=== PATIENT | male | born 1960 | race Caucasian/White ===

== ENCOUNTER 2017-06-28 08:02 | Day surgery (SDC) | payer BC ==
[2017-06-27 10:14] LABS: Absolute Lymphocytes (CBC) 4.3 K/uL (0.7-4.9); Absolute Monocytes 0.9 K/uL (0.1-1.3); Absolute Neutrophil 8.5 K/uL (1.8-8.0); Basophils % 0.2 % (0-1.3); Eosinophils % 1.7 % (0-4.4); Hematocrit 48.5 % (39.6-49.0); Lymphocytes % 30.9 % (15.3-44.8); MCH 32.2 pg (27.0-35.0); MCV 95.3 fL (80-100); MPV 8.4 fL (7.6-11.3); Monocytes % 6.2 % (3.3-12.3); RBC Red Blood Cell Count 5.09 M/uL (4.33-5.43)
--- NOTE | 2017-06-27 10:39 | RAD REPORT ---
EXAM DESCRIPTION: RAD - Chest Pa And Lat (2 Views) - 06/27/2017 10:32 am CLINICAL HISTORY: Smoker, diabetes. COMPARISON: 06/12/2017, and 12/24/2016, 05/11/2008 FINDINGS: Mild diffuse COPD is present. Vague area of nodularity in the right mid lung appears stabl e. No acute infiltrate seen. The heart is normal in size. No displaced fractures. IMPRESSION: COPD.
[2017-06-27 10:46] LABS: Bicarbonate 24 mEq/L (21-31); Glucose Level 346 mg/dL (65-120); Potassium 4.4 mEq/L (3.6-5.0); Sodium Level 137 mEq/L (135-145)
[2017-06-27 10:47] LABS: BUN Blood Urea Nitrogen 18 mg/dL (6-20)
--- NOTE | 2017-06-27 11:00 | EKG ---
Test Date: 2017-06-27 Test Time: 10:02:07 Supervisor Curing Room: TRAY MEASUREMENT RESULTS: Intervals: Rate: 72 [place]: 148 QRSD: 84 QT: 374 QTc: 409 [place]: P: 48 [place]: 148 QRS: 22 T: 79 INTERPRETIVE STATEMENTS: Normal sinus rhythm Normal ECG Compared to ECG 12/24/2016 08:02:03 No significant changes Electronically Signed On 06-27-17 10:59:30 CDT by Sharath Abdi
[2017-06-28] MEDS ORDERED: CEFAZOLIN/SWI 1gm 1 GM/10 ML SYR ONE (08:32)
[2017-06-28] MEDS ORDERED: NA CHLORIDE 0.9% 1,000 ML ONE (08:32)
[2017-06-28] MEDS ORDERED: INSULIN -REGULAR HUMAN 50 UNIT/0.5 ML ML ONE (08:57)
[2017-06-28] MEDS ORDERED: PROPOFOL 200 MG/20 ML VIAL IV ONE (09:30)
[2017-06-28] MEDS ORDERED: MIDAZOLAM HCL 2 MG/2 ML INJ ONE (09:31)
[2017-06-28] MEDS ORDERED: LIDOCAINE 2% MPF 5 ML VIAL ONE (09:32)
[2017-06-28] MEDS ORDERED: FENTANYL CITR 100 MCG/2 ML ONE (09:33)
[2017-06-28] MEDS ORDERED: COLLAGENASE 30 GM OINTMENT TOP ONE (09:35)
[2017-06-28] MEDS ORDERED: EPHEDRINE SULF 50 MG/5 ML SYR ONE (10:11)
[2017-06-28 12:18] VITALS: BP 132/85; TEMP 97.5; O2SAT 97
--- NOTE | 2017-06-28 22:01 | OP ---
Date of Procedure: 06/28/2017 Surgeon: Nasim Arreola MD Operations Team Leader: Stephanie Kuo, certified MEDIA MARKETING SPECIALIST. Preoperative Diagnosis: Nonhealing wound, left leg; rule out skin cancer. Postoperative Diagnoses: 1.Nonhealing wound, left leg; rule out skin cancer. 2.Basal cell carcinoma. Margins free. Procedure Performed: Wide excision, left leg basal cell carcinoma, 12 x 3 cm, with layered closure. Estimated Blood Loss: Minimal. Specimen: Left leg basal cell carcinoma. Findings: Findings were based upon frozen section. Anesthesia: General. Complications: None. Disposition: The patient tolerated the procedure in stable condition and was taken to Recovery in go od general condition. Procedure In Detail: The patient was brought to the OR and placed in supine position. General anest hesia was begun. The patient was prepped and draped in the usual sterile fashion. Marcaine 0.5% was infiltrated locally. A 15-blade was used to make a 12 x 3-cm incision to excise this 2.5-cm ulcerat ed, raised-edges mass. Specimen was sent to Pathology. Frozen section revealed basal cell carcinoma . Margins were free. Wound was irrigated. Bleeding was controlled with cautery. Flaps were create d. A 2-0 chromic was used to approximate the subcutaneous tissue, and 3-0 nylon was used to close th e skin. Sterile dressing was applied. The patient was awakened and taken to Recovery in good genera l condition. DISCHARGE NOTE The patient will be discharged home when stable. Disposition: Home. Condition: Stable. Discharge Instructions: Resume home medications and diet. Activity as tolerated. No heavy lifting. Remove outer dressing in 2 days. Shower. Keep wound clean and dry. [facility] up [facility] and 10 days. Tylenol No. 3 one tablet p.o. q.4 h. p.r.n. pain and Keflex 500 mg p.o. q.6 h. /MODL Voice ID: [id number] Report ID: [id number]
== END 2017-06-28 11:33 | disposition home or self-care (01) ==
LOC: OR 08:02
PROVIDERS: ATTEND Surgery
PROC: 0JBP0ZZ Excision of Left Lower Leg Subcutaneous Tissue and Fascia, Open Approach (ICD-10-PCS; principal; 2017-06-28 09:45)
DX: C44.719 Basal cell carcinoma of skin of left lower limb, including hip (principal); F10.10 Alcohol abuse, uncomplicated; I25.10 Atherosclerotic heart disease of native coronary artery without angina pectoris; E11.9 Type 2 diabetes mellitus without complications; E78.5 Hyperlipidemia, unspecified; I10 Essential (primary) hypertension; F17.200 Nicotine dependence, unspecified, uncomplicated
CPT/HCPCS: 36415; 71046; 80048; 82962; 85025; 88305; 88331; 88332; 93005; J0690; J2250; J3010; J3590; J7030

== ENCOUNTER 2021-06-12 03:37 | Observation (INO) | payer BC, OTHER, SELFPAY ==
--- OUTSIDE RECORDS SUMMARY | 2021-06-12 03:42 | XMS REPORT | Continuity of Care Document ---
:1960 Author Organization [facility] t Address [address] [place] [address] Care Team Providers Name Role Phone Pcp, Does Not Have A Primary Care Physician Mir Attending Clinician Unavailable ANGELA Attending Clinician Unavailable Gilma Gilbert Attending Clinician Niranjan MORILLO Attending Clinician Angela MORILLO Attending Clinician Doctor Unassigned, Name Attending Clinician Unavailable Veena Springer DO Attending Clinician Veena SPRINGER Attending Clinician Unavailable ANGELA Admitting Clinician Unavailable Angela MORILLO Admitting Clinician Veena SPRINGER Admitting Clinician Unavailable Payers Payer Name Policy Type Policy Number Effective Date Expiration Date S ource Problems Condition Condition Condition Status Onset Resolution Last Treating Co mments Source Name Details Category Date Date Treatment Clinician Date Ascites Ascites Disease Active Univers 4-14 ity of 00:00: [address] Branch 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 4-14 [place] No known No known Disease Unive rs active active ity of problems problems [facility] Allergies, Adverse Reactions, Alerts Allergy Allergy Status Severity Reaction(s) Onset Inactive Treating Comm ents Source Name Type Date Date Clinician NO KNOWN Drug Active Univers ALLERGIE Class ity of S [facility] Social History Social Habit Start Date Stop Date Quantity Comments Source Exposure to Not sure University of SARS-CoV-2 [place] [facility] (event) Branch History SDOH University o f Alcohol Frequency [facility] edical Branch History SDOH University o f Alcohol Std [place] [facility] Drinks Branch History SDOH University o f Alcohol Binge [facility] al Uriah Tobacco use and 2021-06-08 2021-06-08 Never used Universit y of exposure 00:00:00 00:00:00 [facility] Alcohol intake 2021-06-08 2021-06-08 Ex-drinker University of 00:00:00 00:00:00 (finding) [facility] Alcohol Comment 2021-06-08 2021-06-08 last drink Universit y of 00:00:00 00:00:February [facility] l Uriah Sex Assigned At [birth year] Universit y of 00:00:00 00:00:00 [facility] Smoking Status Start Date Stop Date Source Unknown if ever smoked [facility] y [facility] Former smoker 2021-06-08 00:00:00 2021-06-08 00:00:00 [facility] Medications Ordered Filled Start Stop Current Ordering Indication Dosage Frequency Signature Comments Components Source Medication Medication Date Date Medication? Clinician (SIG) Name Name spironolact Yes 50mg 50 mg, Univ ers one 4-17 Oral, BID, ity of (ALDACTONE) 01:00: First dose [place] tablet 50 00 (after Medical mg last Branch modificati on) on 06/10/21 at 1999, Until Discontinu ed, Routine furosemide Yes 20mg 20 mg, Unive rs (LASIX) 4-17 Oral, BID, ity of tablet 20 01:00: [place] 00 on Sat Medical 06/10/21 at Branch 1999, Until Discontinu ed, Routine FUROSEMIDE Take by Un lauri ORAL 4-16 04-16 mouth. ity of 10:03: 00:00 [place] 59 :00 Medical Branch furosemide 2021- Yes [id number] 20mg Take 1 Univers 20 mg 4-16 05-17 tablet by ity of tablet 00:00: 04:59 mouth 2 [place] 00 :00 (two) Medical times Branch daily for 30 days. apixaban 2021- Yes [id number] 5mg Take 1 Univer s (ELIQUIS) 5 -16 05-17 tablet by it y of mg tablet 00:00: 04:59 [place] 2 [place] :[place] (two) Medical times Branch daily for 30 days. Indication s: blockage or narrowing of the portal vein by a blood clot magnesium 2021- Yes [id number] 400mg Take 400 Univers oxide 420 4-16 05-17 mg by ity of mg Tab 00:00: 04:59 mouth [place] 00 :00 daily for Medical 30 days. Branch glipiZIDE 2021- Yes [id number] 2.5mg Take 1 Univers XL 2.5 mg 4-16 05-17 tablet by ity of 24 hr 00:00: 04:59 mouth [place] tablet 00 :00 daily with Medical breakfast Branch for 30 days. spironolact 2021- Yes [id number] 50mg Take 1 Univers one 50 mg -16 05-17 tablet by ity of tablet 00:00: 04:59 mouth 2 [place] 00 :00 (two) Medical times Branch daily for 30 days. albumin 2021- No 25g 25 g, IV Unive rs (ALBUMINAR 06-09 Infusion, ity of 25%) 25 % 22:45: 23:02 ONCE, 1 [place] injection [place] :00 dose, On Medica l 25 g Fri Branch 06/09/21 at 1745, 100 mL
[place] cation: HEMORRHAGI C SHOCK
C omments: 1. First-line therapy: Crystalloi ds. 2. Failed response from use of crystalloi d therapy. KCL 2021- No 40meq 40 mEq, Univers (KLOR-CON -15 Oral, ity of M20) tablet 15:00: 16:52 ONCE, 1 [place] 40 mEq 00 :00 dose, On Medical Fri Branch 06/09/21 at 1000, Routine magnesium 2021-0 Yes 400mg 400 mg, Univ ers oxide 4-15 Oral, BID, ity of (MAG-OX 13:00: [place] 400[place] tablet 00 on Sat Medica l 400 mg 06/09/21 at Branch 0800, Until Discontinu ed, Routine Sliding 2021-0 Yes Subcutaneo Univ ers Scale 4-15 us, AC, ity of Insulin-Reg 12:30: First dose [place] ular + Fsbg 00 on Sat Medica l Testing 06/09/21 at Branch 0730, Until Discontinu ed, Routine cefTRIAXone 2021-0 Yes 1000mg 1,000 mg, Univers (ROCEPHIN) 4-15 IV ity of 1,000 mg in 05:00: Piggyback, [place] NaCl 0.9% 00 Q12H ABX, Medic al (NS) 50 mL First dose [place] [facility] MINI-BAG on Sat06/09/21 at 0000, Until Discontinu ed, Administer over 30 Minutes, 50 mL
Reas on for Anti-Infec tive: Empiric Therapy for Suspected Infection< br>Empiric Therapy Site: Urine
D uration of therapy: 7 days lactulose 0 Yes 15mL 15 mL, Univer s (CEPHULAC) 4-15 Oral, BID, ity of solution 15 04:00: First dose [place] mL 00 on [facility] 06/08/21 at Branch 2300, Until Discontinu ed, Routine sennosides 2021-0 Yes 8.6mg 8.6 mg, Uni vers (SENOKOT) 4-15 Oral, BID, ity of tablet 8.6 04:00: First dose [place] mg 00 on [facility] 06/08/21 at Branch 2300, Until Discontinu ed, Routine docusate 2021-0 Yes 100mg 100 mg, Unive rs (COLACE) 4-15 Oral, BID, ity o f capsule 100 04:00: First dose [place] mg 00 on [facility] 06/08/21 at Branch 2300, Until Discontinu ed, Routine enoxaparin 0 Yes 1mg/kg 70 mg Univ ers (LOVENOX) 4-15 (rounded ity of injection 04:00: from 74.4 [place] 70 mg 00 mg = 1 Medical mg/kg Branch ?74.4 kg), Subcutaneo us, Q12H, First dose (after last modificati on) on [facility] 06/08/21 at 2300, Until Discontinu ed, Routine spironolact No 25mg 25 mg, Uni vers one 06-09-16 Oral, BID, ity of (ALDACTONE) 04:00: 14:12 First dose [place] tablet 25 00 :38 on [place] [facility] mg 06/08/21 at Branch 2300, Until Discontinu ed, Routine furosemide No 20mg 20 mg, IV U nivers (LASIX) 06-09 Push, Q8H, ity o f injection 04:00: 14:12 First dose [place] 20 mg 00 :06 (after Medical last Branch reorder) on [facility] 06/08/21 at 2300, Until Discontinu ed, Routine glucagon Yes 1mg 1 mg, Univers (GLUCAGEN 15 Intramuscu ity of DIAGNOSTIC 03:51: lar, PRN, [place] KIT) 30 Starting Medical injection 1 on [place] Branch mg 06/08/21 at 2251, Until Discontinu ed, MURPHY, Blood Glucose < or = 70 mg/dL and patient is unable to swallow or has mental changes. dextrose 50 Yes 25mL 25 mL, Univ ers % in water 415 Slow IV ity of (D50W) 03:51: Push, PRN, [place] injection 30 Starting Medica l 25 mL on [facility] Branch 06/08/21 at 2251, Until Discontinu ed, MURPHY, Blood Glucose < or = 70 mg/dL and patient is unable to swallow or has mental status changes. glipiZIDE 2021- No 2.5mg Take 2.5 Un lauri XL 2.5 mg 06-08- mg by ity of 24 hr 22:56: 00:00 mouth [place] tablet 51 :00 daily with Medical breakfast. Uri[place] FLUoxetine 2021- No 40mg Take 40 mg Univers 20 mg 06-08-14 by mouth ity of capsule 22:56: 00:00 daily. [place] 51 :00 [facility] Branch metformin 2021- No 2000mg Take 2,000 Univers ER 500 mg 06-08 mg by ity of 24 hr 22:56: 00:00 mouth [place] tablet 51 :00 daily with Medical breakfast. Branch ondansetron 2021- No 4mg 4 mg, Slow Univers (ZOFRAN 06-08 IV Push, ity of (PF)) 22:45: 21:46 ONCE, 1 [place] injection 4 00 :00 dose, On Medi jaimee mg [facility] 06/08/21 at 1745, MURPHY morpHINE 2021- No 4mg 4 mg, Slow Un lauri injection 4 06-08 IV Push, ity of mg 22:45: 21:46 ONCE, 1 [place] 00 :00 dose, On [facility] 06/08/21 at 1745, STAT traMADoL 2021- Yes 50mg 50 mg, Univer s (ULTRAM) 06-08 Oral, ity of tablet 50 22:36: 22:35 Q4HPRN, [place] mg 21 :21 Starting Medical on [facility] Branch 06/08/21 at 1736, Until 06/10/21 at 1735, Routine, Pain (scale 4-6) acetaminoph Yes 650mg 650 mg, Un lauri en 06-08 Oral, ity of (TYLENOL) 22:36: Q6HPRN, [place] tablet 650 14 Starting Medic al mg on [facility] 06/08/21 at 1736, Until Discontinu ed, Routine, Pain (scale 1-3) iopamidol 2021- No [id number] 100mL 100 mL, Univers (ISOVUE 06-08 Intravenou ity o f 370-500 mL) 21:45: 20:25 s, ONCE, 1 [place] injection 00 :00 dose, On Medica l 100 mL [facility] 06/08/21 at 1645, Routine KCL 2021- No 40meq 40 mEq, Univers (KLOR-CON 06-08 Oral, ity of M20) tablet 21:15: 20:19 ONCE, 1 [place] 40 mEq 00 :00 dose, On [facility] 06/08/21 at 1615, Routine furosemide No 60mg 60 mg, IV U nivers (LASIX) 06-08 Push, ity of injection 21:15: 20:20 ONCE, 1 [place] 60 mg 00 :00 dose, On Medical [place] Branch 06/08/21 at 1615, MURPHY magnesium No 2g 2 g, IV Univ ers sulfate in 06-08 Piggyback, it y of water 2 21:15: 21:32 Administer [place] gram/50 mL 00 :00 over 60 Medica l (4 %) Minutes, Branch infusion 2 ONCE, 1 g dose, On [place] 06/08/21 at 1615, Routine magnesium No 2g 2 g, IV Univ ers sulfate in 04-22 Piggyback, it y of water 2 15:45: 16:11 ONCE, 1 [place] gram/50 mL 00 :00 dose, On Medic al (4 %) Sat Branch infusion 2 04/22/21 at g 0945, Routine iopamidol No [id number] 110mL 110 mL, Univers (ISOVUE 04-22 Intravenou ity o f 370-500 mL) 14:05: 14:06 s, ONCE, 1 [place] injection 00 :00 dose, On Medica l 110 mL Sat Branch 04/22/21 at 0830, Routine No known No Univers medications 04-22 ity of 07:25: [address] No known No Univers medications 04-22 ity of 07:25: [address] Vital Signs Vital Name Observation Time Observation Value Comments Source Systolic blood 2021-06-10 12:16:00 101 mm[Hg] Univer sity of pressure [facility] Diastolic blood 2021-06-10 12:16:00 63 mm[Hg] Unive rsity of pressure [facility] Heart rate 2021-06-10 12:16:00 69 /min [facility] Body temperature 2021-06-10 12:16:00 36.44 Miya [facility] ersity [facility] Respiratory rate 2021-06-10 12:16:00 23 /min [facility] Oxygen saturation in 2021-06-10 12:16:00 91 /min [place] of Arterial blood by [facility] Pulse oximetry Branch Body weight 2021-06-09 19:00:00 74.98 kg Universi [facility] BMI 2021-06-09 19:00:00 25.13 kg/m2 [facility] Body height 2021-06-08 22:33:00 172.7 cm Universi [facility] Systolic blood 2021-04-22 16:00:00 138 mm[Hg] [facility] Diastolic blood 2021-04-22 16:00:00 85 mm[Hg] [facility] Heart rate 2021-04-22 16:00:00 86 /min [facility] Respiratory rate 2021-04-22 16:00:00 18 /min [facility] Oxygen saturation in 2021-04-22 16:00:00 96 /min University of Arterial blood by [facility] Pulse oximetry Branch Body temperature 2021-04-22 13:40:50 36.78 Miya [facility] Body height 2021-04-22 13:29:00 170.2 cm [facility] Body weight 2021-04-22 13:29:00 67.132 kg [facility] BMI 2021-04-22 13:29:00 23.18 kg/m2 [facility] Procedures Procedure Date / Time Performing Clinician Source Performed POCT GLUCOSE (AUTOMATED) 2021-06-10 12:51:00 Carloz Miller [facility] MAGNESIUM 2021-06-10 10:09:00 Carloz Miller [place] o f [facility] HEPATIC FUNCTION PANEL 2021-06-10 10:09:00 Carloz Miller [facility] ([id number]) (ALB,T.PRO,BILI [facility] Branch T,BU/BC,ALT,AST,ALK PHOS) BASIC METABOLIC PANEL 2021-06-10 10:09:00 Carloz Miller [facility] (NA, K, CL, CO2, Medical Branch GLUCOSE, BUN, CREATININE, CA) CBC WITH DIFF 2021-06-10 10:09:00 Carloz Miller [facility] N-TERMINAL PRO-BNP 2021-06-10 10:09:00 Carloz Miller [facility] POCT GLUCOSE (AUTOMATED) 2021-06-09 22:09:00 Carloz Miller [facility] ALBUMIN BODY FLUID 2021-06-09 21:40:00 Ken Ureña [facility] T.PROTEIN BODY FLUID 2021-06-09 21:40:00 Ken Ureña [facility] BODY FLUID DIRECT COUNT 2021-06-09 21:40:00 Ken Ureña [facility] BODY FLUID 2021-06-09 21:40:00 Ken Ureña [facility] CULTURE(AEROBIC/ANAEROBI [facility] C) US ARTERIAL IN OR VENOUS 2021-06-09 19:47:00 Kamilla Baker [facility] OUT ABDOMEN LIMITED Medical [facility] DOPPLER POCT GLUCOSE (AUTOMATED) 2021-06-09 17:36:00 Ken Ureña [facility] URINE DRUG (IMMUNOASSAY) 2021-06-09 11:01:00 Kamilla Baker [facility] SCREEN SODIUM, URINE RANDOM 2021-06-09 11:01:00 Kamilla Baker [facility] PROTEIN CREAT RATIO 2021-06-09 11:01:00 Kamilla Baker [facility] URINE RANDOM Medical Branch PHOSPHORUS 2021-06-09 09:32:00 Kamilla Baker [facility] LACTATE DEHYDROGENASE 2021-06-09 09:32:00 Kamilla Baker [facility] URIC ACID 2021-06-09 09:32:00 Olivia bernice [facility] MAGNESIUM 2021-06-09 09:32:00 Ken Ureña [facility] FERRITIN SERUM 2021-06-09 09:32:00 Olivia [facility] AMMONIA, PLASMA 2021-06-09 09:32:00 Olivia [facility] C-REACTIVE PROTEIN 2021-06-09 09:32:00 Olivia [facility] THYROID STIMULATING 2021-06-09 09:32:00 Olivia [facility] HORMONE [facility] COMP. METABOLIC PANEL 2021-06-09 09:32:00 Olivia bernice [facility] ([id number]) [facility] LIPID PANEL 2021-06-09 09:32:00 Olivia bernice [facility] ([id number])(TOTAL Medical Branch CHOLESTEROL, TRIGLYCERIDES, HDL) CBC WITH DIFF 2021-06-09 09:32:00 Ken Ureña [facility] HEPATITIS B SURFACE 2021-06-09 09:32:00 Olivia [facility] ANTIBODY [facility] HEPATITIS B SURFACE 2021-06-09 09:32:00 Olivia [facility] ANTIGEN [facility] HAV ANTIBODY (IGG AND 2021-06-09 09:32:00 Olivia [facility] IGM) [facility] N-TERMINAL PRO-BNP 2021-06-09 09:32:00 Olivia bernice [facility] VITAMIN D, 25-OH 2021-06-09 09:32:00 Olivia [facility] PROCALCITONIN 2021-06-09 09:32:00 Olivia [facility] PHOSPHORUS 2021-06-09 05:18:00 Ken Ureña [facility] SEDIMENTATION RATE 2021-06-09 05:18:00 Olivia bernice [facility] MRSA / MSSA SCREEN BY 2021-06-08 22:39:00 Ken Ureña [facility] / INR 2021-06-08 21:46:00 Ken Ureña [facility] ACTIVATED PARTIAL 2021-06-08 21:46:00 Ken Ureña [facility] THRMPLAS KOBI [facility] CT ABDOMEN PELVIS W 2021-06-08 20:38:48 Nisreen Perla [facility] CONTRAST [facility] URINALYSIS 2021-06-08 19:52:00 Nisreen Perla [facility] URINE CULTURE 2021-06-08 19:52:00 Kamilla Baker [facility] UREA NITROGEN, URINE 2021-06-08 19:52:00 Kamilla Baker [facility] RANDOM Medical Branch LIPASE 2021-06-08 18:36:00 Nisreen Perla [facility] MAGNESIUM 2021-06-08 18:36:00 Nisreen Perla [facility] TROPONIN I 2021-06-08 18:36:00 Nisreen Perla Gil[facility] COMP. METABOLIC PANEL 2021-06-08 18:36:00 Nisreen Perla [facility] ([id number] IRON PANEL 2021-06-08 18:36:00 Kamilla Baker [facility] CBC WITH DIFF 2021-06-08 18:36:00 Nisreen Perla [facility] GLYCOSYLATED HEMOGLOBIN 2021-06-08 18:36:00 [facility] HB ECG ROUTINE & RHYTHM 2021-06-08 18:29:24 Nisreen Perla [facility] CONSENT/REFUSAL FOR 2021-06-08 18:05:57 Doctor Unassigned, No Un [facility] DIAGNOSIS AND TREATMENT Name Medical [place] CT ABDOMEN PELVIS W 2021-04-22 14:15:00 Steffi Springer [facility] CONTRAST [facility] LIPASE 2021-04-22 13:41:00 Steffi Springer [facility] MAGNESIUM 2021-04-22 13:41:00 Steffi Springer [facility] AMMONIA, PLASMA 2021-04-22 13:41:00 Steffi Springer [facility] TROPONIN I 2021-04-22 13:41:00 tSeffi Springer [facility] COMP. METABOLIC PANEL 2021-04-22 13:41:00 Steffi Springer [facility] ([id number]) [facility] CBC WITH DIFF 2021-04-22 13:41:00 Steffi Springer Universit y of [facility] PROTHROMBIN TIME / INR 2021-04-22 13:41:00 Steffi Springer Un iversity of [facility] COVID-19 (ID NOW RAPID 2021-04-22 13:41:00 Steffi Springer Un iversity of [facility]) [facility] Encounters Start End Encounter Admission Attending Care Care Encounter Source Date/Time Date/Time Type Type Clinicians Facility Department ID 2021-04-10 Out[facility] [id number] 09:07:02 [facility] 2021-06-08 2021-06-10 Inpatient X ANGELA ALBRANDON NATALIA [id number] Univers 13:23:00 12:48:00 CARLOZ ity [facility] 2021-06-08 2021-06-10 [facility] PanNisreen freeman [facility] [id number] Univers 13:23:00 12:48:00 Encounter Ken Ureña [id number] ity of Carloz Miller [id number] [facility] [id number] [facility] 080 Branch 2021-06-08 2021-06-08 Orders Doctor ANDER [id number] Univers 00:00:00 00:00:00 Only Unassigned, DAVID [id number] ity of [place] [facility] [id number] [place] [id number] [facility] 009 Branch 2021-05-09 2021-05-09 [id number] 2021-04-22 2021-04-22 [facility] [id number] Univers 07:32:00 10:15:00 Steffi NELSON [id number] ity of ORIENT [id number] [facility] [id number] [facility] 084 Branch 2021-04-22 2021-04-[address]IAN [facility] ERT [id number] Univers 07:32:00 10:15:00 STEFFI li [facility] 2021-04-10 2021-04-10 [facility] [id number] [facility] 00:[facility] 00:00:00 Zakiya Ester Kera marnie [facility] ent Clinics Results Test Description Test Time Test Comments Results Result Comments Source POCT GLUCOSE (AUTOMATED) 2021-06-10 12:55:55 Test Item Value Reference Range Interpretation Comme nts POCT GLU (test code = 4681371647) 64 mg/dL 70-110 L Lab Interpretation (test code = 17372-4) Abnormal [facility] WITH [id number] 11:14:10 Test Item Value Reference Range Interpretation Comments WBC (test code = See_Comment [Automated message] 6490-2) The system [employer] generated this result transmitted ref erence range: 4.20 - 1 0.70 10*3/?L. The re ference range was not u sed to interpret this result as normal/abnor mal. RBC (test code = See_Comment [Automated message] 029-8) The system [employer] generated this result transmitted ref erence range: 4.26 - 5 .52 10*6/?L. The re ference range was not u sed to interpret this result as normal/abnor mal. HGB (test code = 14.0 g/dL 12.2-16.4 718-7) HCT (test code = 41.3 % 38.4-49.3 4544-3) MCV (test code = 94.7 fL 81.7-95.6 787-2) MCH (test code = 32.1 pg 26.1-32.7 785-6) MCHC (test code = 33.9 g/dL 31.2-35.0 786-4) RDW-SD (test code 46.6 fL 38.5-51.6 = 54927-5) RDW-CV (test code 13.3 % 12.1-15.4 = 788-0) PLT (test code = See_Comment [Automated message] 197-3) The system [employer] generated this result transmitted ref erence range: 150 - 32 8 10*3/?L. The re ference range was not u sed to interpret this result as normal/abnor mal. MPV (test code = 10.6 fL 9.8-13.0 18053-5) NRBC/100 WBC (test See_Comment [Automat ed message] code = 7785331913) The syste m which generated this result transmitted ref erence range: 0.0 - 10 .0 /100 WBCs. The refer ence range was not u sed to interpret this result as normal/abnor mal. NRBC x10^3 (test <0.01 See_Comment [Automated message] code = 3777002852) The syste m which generated this result transmitted ref erence range: 10*3/?L. The reference range was not used to interpr et this result as normal/abnormal . GRAN MAT (NEUT) % 49.8 % (test code = 770-8) IMM GRAN % (test 0.40 % code = 3009371323) LYMPH % (test code 37.5 % = 736-9) MONO % (test code 9.7 % = 5905-5) EOS % (test code = 1.4 % 713-8) BASO % (test code 1.2 % = 706-2) GRAN MAT 3.86 10*3/uL 1.99-6.95 x10^3(ANC) (test code = 2575961813) IMM GRAN x10^3 0.03 10*3/uL 0.00-0.06 (test code = 4249767263) LYMPH x10^3 (test 2.91 10*3/uL 1.09-3.23 code = 731-0) MONO x10^3 (test 0.75 10*3/uL 0.36-1.02 code = 742-7) EOS x10^3 (test 0.11 10*3/uL 0.06-0.53 code = 711-2) BASO x10^3 (test 0.09 10*3/uL 0.01-0.09 code = 704-7) [id number] 10:51:52 Test Item Value Reference Range Interpretation Comments NT-proBNP (test code 905 pg/mL See_Comment H [Autom ated = 8146041694) message] The system which generated this result transmitted reference range : <=125. The reference range was not used to interpret this result as normal/abnormal . RAIZA (test code = RAIZA) Biotin has been reported to cause a negative bias, interpret results relative to patient's use of biotin. Lab Interpretation Abnormal (test code = 13585-9) [facility] 10:44:47 Test Item Value Reference Range Interpretation Comments MAGNESIUM (test code = 8916344835) 1.7 mg/dL 1.7-2.4 Lab Interpretation (test code = Normal 41530-9) [facility] (NA, K, CL, CO2, GLUCOSE, BUN, CREATININE, CA)2021-06-10 10:44:32 Test Item Value Reference Range Interpretation Comments NA (test code = 136 mmol/L 135-145 6024575304) K (test code = 3.4 mmol/L 3.5-5.0 L 3588482629) CL (test code = 103 mmol/L 98-108 8780331192) CO2 TOTAL (test code = 27 mmol/L 23-31 9215499933) AGAP (test code = 2-16 6608673062) BUN (test code = 12 mg/dL 7-23 5548073916) GLUCOSE (test code = 75 mg/dL 70-110 8359362910) CREATININE (test code = 0.85 mg/dL 0.60-1.25 9474699580) CALCIUM (test code = 7.5 mg/dL 8.6-10.6 L 6474112796) eGFR (test code = mL/min/1.73m2 5664294879) RAIZA (test code = RAIZA) Association of Glomerular Filtration Rate (GFR) and Staging of Kidney Disease* + --+ --+ ------+| GFR (mL/min/1.73 m2) ?| With Kidney Damage ?| ?Without Kidney Damage+ --------+ --------+ +| ?>90 ?| ?Stage one ?| ? Normal ?+ ---+ ---+ -------+| ?60-89 ?| ?Stage two ?| ? Decreased GFR ? + --+ --+ ------+| ?30-59 ?| ?Stage three ?| ? Stage three ? + --+ --+ ------+| ?15-29 ?| ?Stage four ? | ? Stage four ?+ ---+ ---+ -------+| ?<15 (or dialysis) ? ?| ?Stage five ? | ? Stage five ?+ ---+ ---+ -------+ *Each stage assumes the associated GFR level has been in effect for at least three months. ?Stages 1 to 5, with or without kidney disease, indicate chronic kidney disease. Notes: Determination of stages one and two (with eGFR >59mL/min/1.73 m2) requires estimation of kidney damage for at least three months as defined by structural or functional abnormalities of the kidney, manifested by either:Pathological abnormalities or Markers of kidney damage (including abnormalities in the composition of the blood or urine or abnormalities in imaging tests). Lab Interpretation Abnormal (test code = 89116-0) [facility] (ALB,T.PRO,BILI T,BU/BC,ALT,AST,ALK PHOS)2021-06-10 10:44:32 Test Item Value Reference Range Interpretation Comments TOTAL BILI (test code = 8822614231) 1.0 mg/dL 0.1-1.1 BILI UNCON (test code = 3923530061) 0.5 mg/dL 0.1-1.1 BILI CONJ (test code = 0247685549) 0.0 mg/dL 0.0-0.3 T PROTEIN (test code = 8001829017) 5.5 g/dL 6.3-8.2 L ALBUMIN (test code = 3451834787) 2.5 g/dL 3.5-5.0 L ALK PHOS (test code = 6144519482) 119 U/L 34-122 ALTv (test code = 1742-6) 24 U/L 5-50 AST(SGOT) (test code = 1586871878) 86 U/L 13-40 H Lab Interpretation (test code = Abnormal 96650-9) [facility]2021-06-09 22:11:26 Test Item Value Reference Range Interpretation Comments POCT GLU (test code = 3624286322) 113 mg/dL 70-110 H Lab Interpretation (test code = Abnormal 09701-0) [facility] CenterIRON [id number] 21:47:29 Test Item Value Reference Range Interpretation Comments IRON (test code = 0422823141) 69 ug/dL 50-160 TIBC (test code = 6682503040) 240 ug/dL 250-410 L % FE SAT (test code = 8821352591) 29 % 20-50 Lab Interpretation (test code = Abnormal 42036-0) [facility]2021-06-09 17:39:15 Test Item Value Reference Range Interpretation Comments POCT GLU (test code = 8165770356) 117 mg/dL 70-110 H Lab Interpretation (test code = Abnormal 71538-1) [facility] CenterC-REACTIVE [id number] 17:07:30 Test Item Value Reference Range Interpretation Comments CRP (test code = 6895559370) 3.4 mg/dL <0.8 H Lab Interpretation (test code = Abnormal 54433-1) [facility] CenterPROCALCITONIN2022-04-15 16:52:33 Test Item Value Reference Range Interpretation Comments Procalcitonin (test 0.20 ng/mL <0.07 H code = 3426022895) RAIZA (test code = RAIZA) INTERPRETATION OF PROCALCITONIN RESULTS IN ADULTS >= 18 YEARS OF AGE Initiation and discontinuation of antibiotics on patients with suspected or confirmed Lower Respiratory Tract Infection in Adults >= 18 years of age. + +-------- --------+ + -----+|Procalcitonin |Interpretation ?|Antibiotic ? ? |Considerations ? |ng/mL ? | ?|recommendation | ? + +-------- --------+ + -----+| <0.1 ? | Bacterial ? ? ?| Strongly ? ? ?| ? | ?| infection very | discouraged ? | Overruling: ? | ?| unlikely ? ? ? | ? | ? Clinically unstable ? ? ? + +-------- --------+ + ? High risk for adverse ? ? | <0.25 ?| Bacterial ? ? ?| Discouraged ? | ? outcome ? | ?| infection ? ? ?| ? | ? SEE IMPORTANT NOTE ?| ?| unlikely ? ? ? | ? | ? + +-------- --------+ + -----+| >=0.25 ? ? ? | Bacterial ? ? ?| Encouraged ? ?| ? | ?| infection ? ? ?| ? | ? | ?| likely ? | ? | Consider treatment failure ?+ +------- ---------+ -+ if levels does not decrease | >0.5 ? | Bacterial ? ? ?| Strongly ? ? ?| appropriately ? | ?| infection very | encouraged ? ?| ? | ?| likely ? | ? | ? + +-------- --------+ + -----+ Discontinuation of antibiotics in high-acuity patients with suspected or confirmed sepsis in Adults >= 18 years of age. + +-------- --------+ + -----+|Procalcitonin |Interpretation ?|Antibiotic ? ? |Considerations ? |ng/mL ? | ?|recommendation | ? + +-------- --------+ + -----+| <0.25 ?| Bacterial ? ? ?| Strongly ? ? ?| ? | ?| infection very | discouraged ? | Overruling: ? | ?| unlikely ? ? ? | ? | ? Clinically unstable ? ? ? + +-------- --------+ + ? High risk for adverse ? ? | <0.5 or drop | Bacterial ? ? ?| Discouraged ? | ? outcome ? | >80% from ? ?| infection ? ? ?| ? | ? SEE IMPORTANT NOTE ?| highest PCT ?| unlikely ? ? ? | ? | ? | level ?| ?| ? | ? + +-------- --------+ + -----+| >=0.5 ?| Bacterial ? ? ?| Encouraged ? ?| ? | ?| infection ? ? ?| ? | ? | ?| likely ? | ? | Consider treatment failure ?+ +------- ---------+ -+ if levels does not decrease | >1.0 ? | Bacterial ? ? ?| Strongly ? ? ?| appropriately ? | ?| infection very | encouraged ? ?| ? | ?| likely ? | ? | ? + +-------- --------+ + -----+ Percentage of drop of Procalcitonin calculation for Discontinuation of antibiotics in high-acuity patients with suspected or confirmed sepsis in Adults >= 18 years of age. ? Procalcitonin highest{}-Procalcitonin current{}Delta Procalcitonin = x100% ? Procalcitonin current {} IMPORTANT NOTE: Procalcitonin may be elevated without bacterial infection by physiologic stress related to trauma, baum, chronic dialysis, metastatic cancer, surgery in the past seven days, malaria, some fungal infections, and some forms of vasculitis. The interpretation algorithm may not apply to patients with immunosuppression (equivalent of >10 mg of prednisone daily), HIV with CD4 cell count < 350 cells/mm3, active malignancy on systemic chemotherapy, solid organ transplant or hematopoietic stem cell transplantation, or hospital acquired pneumonia. Additionally, some clinical trials of procalcitonin have excluded patients with shock requiring vasopressor use, acute respiratory failure requiring mechanical ventilation, or those with known lung abscess/empyema. For further information please refer to:[email or web address] Lab Interpretation Abnormal (test code = 66687-6) [facility] CenterFERRITIN [id number] 16:45:08 Test Item Value Reference Range Interpretation Comments FERRITIN (test code = 522.0 ng/mL 18.0-464.0 H 9568697405) RAIZA (test code = RAIZA) Biotin has been reported to cause a negative bias, interpret results relative to patient's use of biotin. Lab Interpretation (test Abnormal code = 89959-5) [facility] CenterVITAMIN D, [id number] 16:23:33 Test Item Value Reference Range Interpretation Comments VIT D 25OH (test code = <13 25-80 L 64251-5) RAIZA (test code = RAIZA) Deficiency: <20 ng/mLInsufficiency: 20-24 ng/mLOptimal: 25-80 ng/mL Lab Interpretation (test Abnormal code = 39039-6) [facility] CenterHAV ANTIBODY (IGG AND IGM)2021-06-09 16:11:15 Test Item Value Reference Range Interpretation Comments HAV Total (test code Positive = 5126415775) HAVT Semi-Quantitative (test code = 1979082351) RAIZA (test code = RAIZA) Indicates past or present infection with HAV or exposure to HAV due to vaccination. [facility] CenterHEPATITIS B SURFACE [id number] 15:44:39 Test Item Value Reference Range Interpretation Comments HBsAB (test code = Negative 4409557706) HBsAb mIU/mL Semi-Quantitative (test code = 3812552292) RAIZA (test code = Interpretation: RAIZA) ?Hepatitis B Surface Antibody ? Negative - Patient is considered to be not immune to infection with HBV. ? ? Positive - Anti-HBs detected at greater than or equal to 12 mIU/mL. ?Patient is considered to be immune to infection with HBV. ? [facility]PAT[facility] B SURFACE [id number] 15:28:18 Test Item Value Reference Range Interpretation Comments HBsAg Semi-Quantitative (test code = Negative Negative 5195-3) [facility] CenterN-TERMINAL [id number] 15:16:55 Test Item Value Reference Range Interpretation Comments NT-proBNP (test code 1010 pg/mL See_Comment H [Autom ated = 6157305864) message] The system which generated this result transmitted reference range : <=125. The reference range was not used to interpret this result as normal/abnormal . RAIZA (test code = RAIZA) Biotin has been reported to cause a negative bias, interpret results relative to patient's use of biotin. Lab Interpretation Abnormal (test code = 67906-9) [facility] CenterTHYROID STIMULATING [id number] 15:00:14 Test Item Value Reference Range Interpretation Comments TSH (test code = See_Comment [Automated message] 8751940164) The system [employer] generated this result transmitted ref erence range: 0.45 - 4 .70 mIU/L. The refe rence range was not u sed to interpret this result as normal/abnor mal. Lab Interpretation (test Normal code = 13208-4) [facility] CenterPHOSPHORUS2022-04-15 14:53:15 Test Item Value Reference Range Interpretation Comments PHOSPHORUS (test code = 5239513410) 4.1 mg/dL 2.5-5.0 Lab Interpretation (test code = Normal 82099-2) [facility] CenterURIC [id number] 14:49:13 Test Item Value Reference Range Interpretation Comments URIC ACID (test code = 8376411943) 2.2 mg/dL 3.6-8.0 L Lab Interpretation (test code = Abnormal 09105-7) [facility] CenterLIPID PANEL (99034)(TOTAL CHOLESTEROL, TRIGLYCERIDES, HDL)2021-06-09 14:29:31 Test Item Value Reference Range Interpretation Comments CHOL (test code = 225 mg/dL 120-200 H 7655332978) HDL (test code = 22 mg/dL >40 L 9253551037) HDLC RATIO (test code = See_Comment H [Au tomated message] 3906334736) The system [employer] generated this result transmit jose d reference range : <=5.0. The refe rence range was not u sed to interpret th is result as normal/abnormal . TRIG (test code = 150 mg/dL 30-170 6776235471) LDL CHOL (test code = 173 mg/dL See_Comment H [Auto mated message] 01308-5) The system [employer] generated this result transmit jose d reference range : <=160. The refe rence range was not u sed to interpret th is result as normal/abnormal . VLDL (test code = 30 mg/dL 5-60 9755586802) Lab Interpretation (test Abnormal code = 94467-0) [facility] CenterMagnesium [id number] 11:03:13 Test Item Value Reference Range Interpretation Comments MAGNESIUM (test code = 4254342919) 1.8 mg/dL 1.7-2.4 Lab Interpretation (test code = Normal 92391-2) [facility] CenterCOMP. METABOLIC PANEL (46996)2021-06-09 11:02:53 Test Item Value Reference Range Interpretation Comments NA (test code = 138 mmol/L 135-145 5379403723) K (test code = 3.1 mmol/L 3.5-5.0 L 6442738925) CL (test code = 103 mmol/L 98-108 8348484071) CO2 TOTAL (test code = 29 mmol/L 23-31 7267230138) AGAP (test code = 2-16 5253064207) BUN (test code = 13 mg/dL 7-23 3787540470) GLUCOSE (test code = 111 mg/dL 70-110 H 9640227349) CREATININE (test code = 1.03 mg/dL 0.60-1.25 5173330704) TOTAL BILI (test code = 0.8 mg/dL 0.1-1.7 4571469744) CALCIUM (test code = 8.2 mg/dL 8.6-10.6 L 9386435680) T PROTEIN (test code = 6.5 g/dL 6.3-8.2 4725911844) ALBUMIN (test code = 2.9 g/dL 3.5-5.0 L 5125240394) ALK PHOS (test code = 185 U/L 34-122 H 9940229746) ALTv (test code = 37 U/L 5-50 1742-6) AST(SGOT) (test code = 114 U/L 13-40 H 4443164558) eGFR (test code = mL/min/1.73m2 5026521013) RAIZA (test code = ARIZA) Association of Glomerular Filtration Rate (GFR) and Staging of Kidney Disease* + --+ --+ ------+| GFR (mL/min/1.73 m2) ?| With Kidney Damage ?| ?Without Kidney Damage+ --------+ --------+ +| ?>90 ?| ?Stage one ?| ? Normal ?+ ---+ ---+ -------+| ?60-89 ?| ?Stage two ?| ? Decreased GFR ? + --+ --+ ------+| ?30-59 ?| ?Stage three ?| ? Stage three ? + --+ --+ ------+| ?15-29 ?| ?Stage four ? | ? Stage four ?+ ---+ ---+ -------+| ?<15 (or dialysis) ? ?| ?Stage five ? | ? Stage five ?+ ---+ ---+ -------+ *Each stage assumes the associated GFR level has been in effect for at least three months. ?Stages 1 to 5, with or without kidney disease, indicate chronic kidney disease. Notes: Determination of stages one and two (with eGFR >59mL/min/1.73 m2) requires estimation of kidney damage for at least three months as defined by structural or functional abnormalities of the kidney, manifested by either:Pathological abnormalities or Markers of kidney damage (including abnormalities in the composition of the blood or urine or abnormalities in imaging tests). Lab Interpretation Abnormal (test code = 87646-5) [facility] CenterLACTATE [id number] 11:01:12 Test Item Value Reference Range Interpretation Comments LDH (test code = 2750222744) 692 U/L 300-600 H Lab Interpretation (test code = Abnormal 29365-7) [facility] CenterAMMONIA, [id number] 10:11:40 Test Item Value Reference Range Interpretation Comments AMMONIA (test code = 0514621485) <9 9-33 L Lab Interpretation (test code = Abnormal 96363-6) [facility] CenterCB with [id number] 09:43:44 Test Item Value Reference Range Interpretation Comments WBC (test code = See_Comment [Automated 0463-2) message] The sy stem which generated this result transmitted reference range : 4.20 - 10.70 10*3/?L. The reference range was not used to interpret this result as normal/abnormal . RBC (test code = See_Comment [Automated 835-8) message] The sy stem which generated this result transmitted reference range : 4.26 - 5.52 10*6/?L. The reference range was not used to interpret this result as normal/abnormal . HGB (test code = 15.2 g/dL 12.2-16.4 718-7) HCT (test code = 44.5 % 38.4-49.3 4544-3) MCV (test code = 93.9 fL 81.7-95.6 787-2) MCH (test code = 32.1 pg 26.1-32.7 785-6) MCHC (test code = 34.2 g/dL 31.2-35.0 786-4) RDW-SD (test code = 46.8 fL 38.5-51.6 96971-1) RDW-CV (test code = 13.5 % 12.1-15.4 788-0) PLT (test code = See_Comment [Automated 777-3) message] The sy stem which generated this result transmitted reference range : 150 - 328 10*3/ ?L. The reference r christin was not used to interpret this result as normal/abnormal . MPV (test code = 9.5 fL 9.8-13.0 L 90833-8) NRBC/100 WBC (test See_Comment [Automat ed code = 5940146458) message] The system which generated this result transmitted reference range : 0.0 - 10.0 /100 WBCs. The refer ence range was not u sed to interpret th is result as normal/abnormal . NRBC x10^3 (test code <0.01 See_Comment [Auto mated = 0842068624) message] The s ystem which generated this result transmitted reference range : 10*3/?L. The reference range was not used to interpret this result as normal/abnormal . GRAN MAT (NEUT) % 47.7 % (test code = 770-8) IMM GRAN % (test code 0.40 % = 9386268297) LYMPH % (test code = 36.9 % 736-9) MONO % (test code = 11.9 % 5905-5) EOS % (test code = 2.0 % 713-8) BASO % (test code = 1.1 % 706-2) GRAN MAT x10^3(ANC) 3.49 10*3/uL 1.99-6.95 (test code = 7825929579) IMM GRAN x10^3 (test 0.03 10*3/uL 0.00-0.06 code = 4106545620) LYMPH x10^3 (test code 2.70 10*3/uL 1.09-3.23 = 731-0) MONO x10^3 (test code 0.87 10*3/uL 0.36-1.02 = 742-7) EOS x10^3 (test code = 0.15 10*3/uL 0.06-0.53 711-2) BASO x10^3 (test code 0.08 10*3/uL 0.01-0.09 = 704-7) Lab Interpretation Abnormal (test code = 24031-1) [facility] CenterSEDIMENTATION [id number] 07:07:38 Test Item Value Reference Range Interpretation Comments ESR (test code = See_Comment H [Automated message] 8577799486) The system [employer] generated this result transmitted ref erence range: 0 - 10 m m/HR. The reference r christin was not used to interpret this result as normal/abnor mal. Lab Interpretation (test Abnormal code = 98654-3) [facility] CenterPhosphorus [id number] 06:54:42 Test Item Value Reference Range Interpretation Comments PHOSPHORUS (test code = 7445188491) 4.2 mg/dL 2.5-5.0 Lab Interpretation (test code = Normal 15715-7) [facility] CenterGLYCOSYLATED HEMOGLOBIN (A1C)2021-06-09 03:46:18 Test Item Value Reference Range Interpretation Comments HGB A1C (test code = 7.8 % 4.0-5.7 H 4548-4) RAIZA (test code = RAIZA) Reference RangesNormal: <5.7%Prediabetes: 5.7 - 6.4%Diabetes: > 6.5% Lab Interpretation (test Abnormal code = 24719-4) [facility] CenterACTIVATED PARTIAL THRMPLAS [id number] 22:20:27 Test Item Value Reference Range Interpretation Comments APTT Patient (test See_Comment [Automat ed code = 3173-2) message] The system which generated this result transmitted reference range : 23 - 38 Seconds . The reference range was not used to interpr et this result as normal/abnormal . RAIZA (test code = RAIZA) The [facility] patient population mean normal value for aPTT is 30 seconds. Lab Interpretation Normal (test code = 33162-4) [facility] CenterPROTHROMBIN TIME / [id number] 22:18:26 Test Item Value Reference Range Interpretation Comments PROTIME PATIENT (test See_Comment [Auto mated message] code = 5964-2) The system ich generated this result transmitted ref erence range: 12.0 - 1 4.7 Seconds. The re ference range was not u sed to interpret this result as normal/abnor mal. INR (test code = 6301-6) Nor mal INR <1.1; Warfarin Therap eutic range 2.0 to 3. 0 or 2.5 to 3.5, dep ending upon the indica tions. Lab Interpretation (test Normal code = 71789-0) [facility] CenterTROPONIN [id number] 20:22:58 Test Item Value Reference Interpretation Comments Range TROPONIN I (test 0.011 ng/mL See_Comment [Automated code = 4884774765) message] The system which generated this result transmitted reference range : <=0.034. The reference range was not used to interpret this result as normal/abnormal . RAIZA (test code = Reference (Normal) RAIZA) Range (defined by the 99th percentile reference limit): <= 0.034 ng/mL Note: Cardiac troponin begins to rise 3-4 hours after the onset of ischemia. Repeat in 4-6 hours if the sample was drawn within 3-4 hours of the onset of the symptom and found normal. Diagnosis of myocardial injury is made with acute changes in cTn concentrations with at least one serial sample above the 99th percentile upper reference limit (URL), taken together with the patient's clinical presentation. Biotin has been reported to cause a negative bias, interpret results relative to patient's use of biotin. Lab Interpretation Normal (test code = 45704-6) [facility] CenterMAGNESIUM2022-04-14 20:11:32 Test Item Value Reference Range Interpretation Comments MAGNESIUM (test code = 2859601632) 1.6 mg/dL 1.7-2.4 L Lab Interpretation (test code = Abnormal 81513-7) [facility] CenterCOMP. METABOLIC PANEL (45693)2021-06-08 20:11:11 Test Item Value Reference Range Interpretation Comments NA (test code = 137 mmol/L 135-145 3314197403) K (test code = 3.5 mmol/L 3.5-5.0 1861345914) CL (test code = 101 mmol/L 98-108 6570577722) CO2 TOTAL (test code = 28 mmol/L 23-31 0869961683) AGAP (test code = 2-16 9957410190) BUN (test code = 13 mg/dL 7-23 7988010244) GLUCOSE (test code = 185 mg/dL 70-110 H 6841662201) CREATININE (test code = 0.97 mg/dL 0.60-1.25 3324073646) TOTAL BILI (test code = 1.0 mg/dL 0.1-1.1 8768402764) CALCIUM (test code = 8.2 mg/dL 8.6-10.6 L 5677267024) T PROTEIN (test code = 6.6 g/dL 6.3-8.2 3633862162) ALBUMIN (test code = 3.0 g/dL 3.5-5.0 L 7967771055) ALK PHOS (test code = 193 U/L 34-122 H 1484246750) ALTv (test code = 36 U/L 5-50 1742-6) AST(SGOT) (test code = 121 U/L 13-40 H 2853792004) eGFR (test code = mL/min/1.73m2 3314131637) RAIZA (test code = RAIZA) Association of Glomerular Filtration Rate (GFR) and Staging of Kidney Disease* + --+ --+ ------+| GFR (mL/min/1.73 m2) ?| With Kidney Damage ?| ?Without Kidney Damage+ --------+ --------+ +| ?>90 ?| ?Stage one ?| ? Normal ?+ ---+ ---+ -------+| ?60-89 ?| ?Stage two ?| ? Decreased GFR ? + --+ --+ ------+| ?30-59 ?| ?Stage three ?| ? Stage three ? + --+ --+ ------+| ?15-29 ?| ?Stage four ? | ? Stage four ?+ ---+ ---+ -------+| ?<15 (or dialysis) ? ?| ?Stage five ? | ? Stage five ?+ ---+ ---+ -------+ *Each stage assumes the associated GFR level has been in effect for at least three months. ?Stages 1 to 5, with or without kidney disease, indicate chronic kidney disease. Notes: Determination of stages one and two (with eGFR >59mL/min/1.73 m2) requires estimation of kidney damage for at least three months as defined by structural or functional abnormalities of the kidney, manifested by either:Pathological abnormalities or Markers of kidney damage (including abnormalities in the composition of the blood or urine or abnormalities in imaging tests). Lab Interpretation Abnormal (test code = 91004-0) [facility] CenterLIPASE2022-04-14 20:11:11 Test Item Value Reference Range Interpretation Comments LIPASE (test code = 5912337925) 38 U/L 0-220 Lab Interpretation (test code = Normal 05747-1) [facility] CenterCB WITH [id number] 19:24:01 Test Item Value Reference Range Interpretation Comments WBC (test code = See_Comment [Automated message] 2384-2) The system [employer] generated this result transmitted ref erence range: 4.20 - 1 0.70 10*3/?L. The re ference range was not u sed to interpret this result as normal/abnor mal. RBC (test code = See_Comment [Automated message] 739-8) The system [employer] generated this result transmitted ref erence range: 4.26 - 5 .52 10*6/?L. The re ference range was not u sed to interpret this result as normal/abnor mal. HGB (test code = 16.2 g/dL 12.2-16.4 718-7) HCT (test code = 47.7 % 38.4-49.3 4544-3) MCV (test code = 94.1 fL 81.7-95.6 787-2) MCH (test code = 32.0 pg 26.1-32.7 785-6) MCHC (test code = 34.0 g/dL 31.2-35.0 786-4) RDW-SD (test code 46.6 fL 38.5-51.6 = 85425-2) RDW-CV (test code 13.4 % 12.1-15.4 = 788-0) PLT (test code = See_Comment [Automated message] 527-3) The system [employer] generated this result transmitted ref erence range: 150 - 32 8 10*3/?L. The re ference range was not u sed to interpret this result as normal/abnor mal. MPV (test code = 10.0 fL 9.8-13.0 22854-8) NRBC/100 WBC (test See_Comment [Automat ed message] code = 8824618369) The syste m which generated this result transmitted ref erence range: 0.0 - 10 .0 /100 WBCs. The refer ence range was not u sed to interpret this result as normal/abnor mal. NRBC x10^3 (test <0.01 See_Comment [Automated message] code = 0055977851) The syste m which generated this result transmitted ref erence range: 10*3/?L. The reference range was not used to interpr et this result as normal/abnormal . GRAN MAT (NEUT) % 50.2 % (test code = 770-8) IMM GRAN % (test 0.40 % code = 8086858601) LYMPH % (test code 35.8 % = 736-9) MONO % (test code 11.2 % = 5905-5) EOS % (test code = 1.1 % 713-8) BASO % (test code 1.3 % = 706-2) GRAN MAT 3.57 10*3/uL 1.99-6.95 x10^3(ANC) (test code = 8573686508) IMM GRAN x10^3 0.03 10*3/uL 0.00-0.06 (test code = 7911168626) LYMPH x10^3 (test 2.55 10*3/uL 1.09-3.23 code = 731-0) MONO x10^3 (test 0.80 10*3/uL 0.36-1.02 code = 742-7) EOS x10^3 (test 0.08 10*3/uL 0.06-0.53 code = 711-2) BASO x10^3 (test 0.09 10*3/uL 0.01-0.09 code = 704-7) [facility] CenterAMMONIA, [id number] 14:39:53 Test Item Value Reference Range Interpretation Comments AMMONIA (test code = 16 umol/L 9-33 Slight hemolysis 1256433207) Lab Interpretation (test Normal code = 38343-7) [facility] CenterTROPONIN [id number] 14:22:34 Test Item Value Reference Interpretation Comments Range TROPONIN I (test 0.024 ng/mL See_Comment [Automated code = 0397593430) message] The system which generated this result transmitted reference range : <=0.034. The reference range was not used to interpret this result as normal/abnormal . RAIZA (test code = Reference (Normal) RAIZA) Range (defined by the 99th percentile reference limit): <= 0.034 ng/mL Note: Cardiac troponin begins to rise 3-4 hours after the onset of ischemia. Repeat in 4-6 hours if the sample was drawn within 3-4 hours of the onset of the symptom and found normal. Diagnosis of myocardial injury is made with acute changes in cTn concentrations with at least one serial sample above the 99th percentile upper reference limit (URL), taken together with the patient's clinical presentation. Biotin has been reported to cause a negative bias, interpret results relative to patient's use of biotin. Lab Interpretation Normal (test code = 49635-9) [facility] CenterMAGNESIUM2022-02-26 14:11:16 Test Item Value Reference Range Interpretation Comments MAGNESIUM (test code = 2550787455) 1.5 mg/dL 1.7-2.4 L Lab Interpretation (test code = Abnormal 58742-2) [facility] CenterCOMP. METABOLIC PANEL (21027)2021-04-22 14:10:56 Test Item Value Reference Range Interpretation Comments NA (test code = 134 mmol/L 135-145 L 0880716710) K (test code = 3.9 mmol/L 3.5-5.0 2725340002) CL (test code = 102 mmol/L 98-108 6029263609) CO2 TOTAL (test code = 27 mmol/L 23-31 4045676888) AGAP (test code = 2-16 3786357912) BUN (test code = 11 mg/dL 7-23 7765173254) GLUCOSE (test code = 240 mg/dL 70-110 H 0056696442) CREATININE (test code = 0.62 mg/dL 0.60-1.25 8343444147) TOTAL BILI (test code = 1.5 mg/dL 0.1-1.1 H 4229631399) CALCIUM (test code = 8.1 mg/dL 8.6-10.6 L 4280655733) T PROTEIN (test code = 6.2 g/dL 6.3-8.2 L 1896089948) ALBUMIN (test code = 2.8 g/dL 3.5-5.0 L 0710222592) ALK PHOS (test code = 198 U/L 34-122 H 9451755149) ALTv (test code = 36 U/L 5-50 1742-6) AST(SGOT) (test code = 55 U/L 13-40 H 5265414030) eGFR (test code = mL/min/1.73m2 4699855889) RAIZA (test code = RAIZA) Association of Glomerular Filtration Rate (GFR) and Staging of Kidney Disease* + --+ --+ ------+| GFR (mL/min/1.73 m2) ?| With Kidney Damage ?| ?Without Kidney Damage+ --------+ --------+ +| ?>90 ?| ?Stage one ?| ? Normal ?+ ---+ ---+ -------+| ?60-89 ?| ?Stage two ?| ? Decreased GFR ? + --+ --+ ------+| ?30-59 ?| ?Stage three ?| ? Stage three ? + --+ --+ ------+| ?15-29 ?| ?Stage four ? | ? Stage four ?+ ---+ ---+ -------+| ?<15 (or dialysis) ? ?| ?Stage five ? | ? Stage five ?+ ---+ ---+ -------+ *Each stage assumes the associated GFR level has been in effect for at least three months. ?Stages 1 to 5, with or without kidney disease, indicate chronic kidney disease. Notes: Determination of stages one and two (with eGFR >59mL/min/1.73 m2) requires estimation of kidney damage for at least three months as defined by structural or functional abnormalities of the kidney, manifested by either:Pathological abnormalities or Markers of kidney damage (including abnormalities in the composition of the blood or urine or abnormalities in imaging tests). Lab Interpretation Abnormal (test code = 21185-0) [facility] Test Item Value Reference Range Interpretation Comments LIPASE (test code = 4597185593) 86 U/L 0-220 Lab Interpretation (test code = Normal 85015-3) [facility] / [id number] 14:01:54 Test Item Value Reference Range Interpretation Comments PROTIME PATIENT (test See_Comment [Auto mated message] code = 5964-2) The system wh ich generated this result transmitted ref erence range: 12.0 - 1 4.7 Seconds. The re ference range was not u sed to interpret this result as normal/abnor mal. INR (test code = 6301-6) Nor mal INR <1.1; Warfarin Therap eutic range 2.0 to 3. 0 or 2.5 to 3.5, dep ending upon the indica tions. Lab Interpretation (test Normal code = 22445-2) [facility] WITH [id number] 13:54:51 Test Item Value Reference Range Interpretation Comments WBC (test code = See_Comment [Automated 8290-2) message] The sy stem which generated this result transmitted reference range : 4.20 - 10.70 10*3/?L. The reference range was not used to interpret this result as normal/abnormal . RBC (test code = See_Comment [Automated 789-8) message] The sy stem which generated this result transmitted reference range : 4.26 - 5.52 10*6/?L. The reference range was not used to interpret this result as normal/abnormal . HGB (test code = 16.3 g/dL 12.2-16.4 718-7) HCT (test code = 48.3 % 38.4-49.3 4544-3) MCV (test code = 98.6 fL 81.7-95.6 H 787-2) MCH (test code = 33.3 pg 26.1-32.7 H 785-6) MCHC (test code = 33.7 g/dL 31.2-35.0 786-4) RDW-SD (test code = 57.2 fL 38.5-51.6 H 91365-2) RDW-CV (test code = 15.4 % 12.1-15.4 788-0) PLT (test code = See_Comment [Automated 777-3) message] The sy stem which generated this result transmitted reference range : 150 - 328 10*3/ ?L. The reference r christin was not used to interpret this result as normal/abnormal . MPV (test code = 10.4 fL 9.8-13.0 55419-8) NRBC/100 WBC (test See_Comment [Automat ed code = 5820797607) message] The system which generated this result transmitted reference range : 0.0 - 10.0 /100 WBCs. The refer ence range was not u sed to interpret th is result as normal/abnormal . NRBC x10^3 (test code <0.01 See_Comment [Auto mated = 2702806689) message] The s ystem which generated this result transmitted reference range : 10*3/?L. The reference range was not used to interpret this result as normal/abnormal . GRAN MAT (NEUT) % 58.7 % (test code = 770-8) IMM GRAN % (test code 1.20 % = 1526132980) LYMPH % (test code = 26.3 % 736-9) MONO % (test code = 10.7 % 5905-5) EOS % (test code = 2.4 % 713-8) BASO % (test code = 0.7 % 706-2) GRAN MAT x10^3(ANC) 5.93 10*3/uL 1.99-6.95 (test code = 7590951412) IMM GRAN x10^3 (test 0.12 10*3/uL 0.00-0.06 H code = 1484357288) LYMPH x10^3 (test code 2.66 10*3/uL 1.09-3.23 = 731-0) MONO x10^3 (test code 1.08 10*3/uL 0.36-1.02 H = 742-7) EOS x10^3 (test code = 0.24 10*3/uL 0.06-0.53 711-2) BASO x10^3 (test code 0.07 10*3/uL 0.01-0.09 = 704-7) Lab Interpretation Abnormal (test code = 48717-7) [facility]"
[2021-06-12] MEDS ORDERED: MORPHINE 4 MG/ML SYR ONE ×2 (03:45→06:40)
[2021-06-12] MEDS ORDERED: ONDANSETRON 4 MG/2 ML VIAL ONE (03:45)
[2021-06-12 04:21] LABS: Absolute Lymphocytes (CBC) 1.4 K/uL (0.7-4.9); Hematocrit 47.6 % (39.6-49.0); Lymphocytes % 21.2 % (15.3-44.8); MPV 8.5 fL (7.6-11.3); RBC Red Blood Cell Count 4.96 M/uL (4.33-5.43)
[2021-06-12 04:24] LABS: Protime INR 1.04
[2021-06-12 04:32] LABS: Albumin 2.3 g/dL (3.4-5.0); Bilirubin Total 0.7 mg/dL (0.2-1.0); Potassium 3.2 mmol/L (3.5-5.1); Protein, Total 6.4 g/dL (6.4-8.2)
--- NOTE | 2021-06-12 06:40 | ER ---
Nurse's Notes [facility] Name: Neri Luna Age: 60 yrs Sex: Male : 1960 Arrival Date: 06/12/2021 Time: 03:38 Bed 3 Private MD: Diagnosis: Upper abdominal pain, unspecified;Other cholelithiasis without obstruction;Unspecified cirrhosis of liver Presentation: 06/12 03:49 Chief complaint: EMS states: "Coming from home stating that he has some back pain that tw5 starts in the back and radiates to the front. Coronavirus screen: Vaccine status: Patient reports being unvaccinated. Ebola Screen: Patient negative for fever greater than or equal to 101.5 degrees Fahrenheit, and additional compatible Ebola Virus Disease symptoms Patient denies exposure to infectious person. Patient denies travel to an Ebola-affected area in the 21 days before illness onset. Initial Sepsis Screen: Does the patient meet any 2 criteria? No. Patient's initial sepsis screen is negative. Does the patient have a suspected source of infection? No. Patient's initial sepsis screen is negative. Risk Assessment: Do you want to hurt yourself or someone else? Patient reports no desire to harm self or others. Onset of symptoms was June 11, 2021 at 20:00. 03:49 Method Of Arrival: EMS: [facility] tw5 03:49 Acuity: JAQUI 3 tw5 Triage Assessment: 03:50 General: Appears uncomfortable, Behavior is calm, cooperative, appropriate for age. tw5 Pain: Complains of pain in abdomen Pain currently is 9 out of 10 on a pain scale. Historical: - Allergies: 03:50 No Known Allergies; tw5 - PMHx: 03:50 Diabetes - NIDDM; Myocardial infarction; tw5 - Immunization history:: Flu vaccine is not up to date. - Social history:: Smoking status: Patient reports the use of cigarette tobacco products, smokes one-half pack cigarettes per day. - Family history:: not pertinent. - Hospitalizations: : No recent hospitalization is reported. Screenin:51 Abuse screen: Denies threats or abuse. Denies injuries from another. Nutritional tw5 screening: No deficits noted. Tuberculosis screening: No symptoms or risk factors identified. Fall Risk IV access (20 points). Assessment: 03:51 General: Appears uncomfortable, Behavior is calm, cooperative, appropriate for age. tw5 Pain: Pain currently is 9 out of 10 on a pain scale. GI: Abdomen is distended, noted to have ascites. 04:25 Reassessment: Patient appears in no apparent distress at this time. No changes from tw5 previously documented assessment. Patient and/or family updated on plan of care and expected duration. Pain level reassessed. Neuro: No deficits noted. Respiratory: Airway is patent Trachea midline Respiratory effort is even, unlabored. Derm: Skin with poor turgor. 05:39 Reassessment: Patient states feeling better. Patient states symptoms have improved. tw5 Pain: Pain currently is 3 out of 10 on a pain scale. 06:39 Pain: Pain currently is 7 out of 10 on a pain scale. tw5 Vital Signs: 03:49 BP 150 / 90; Pulse 98; Resp 18; Temp 98.5(TE); Pulse Ox 98% ; Weight 64.41 kg; Height 5 tw5 ft. 8 in. (172.72 cm); Pain 9/10; 04:25 BP 149 / 78; Pulse 80; Resp 18; Pulse Ox 96% on R/A; Pain 9/10; tw5 05:39 BP 140 / 80; Pulse 78; Resp 18; Pulse Ox 94% on R/A; tw5 06:39 BP 113 / 76; Pulse 76; Resp 18; Pulse Ox 100% on R/A; tw5 03:49 Body Mass Index 21.59 (64.41 kg, 172.72 cm) tw5 ED Course: 03:38 Patient arrived in ED. rn 03:38 Warren Philippe MD is Attending Physician. rn 03:49 Oksana Marx is Primary Nurse. tw5 03:50 Triage completed. tw5 03:50 Arm band placed on right wrist. tw5 03:51 Patient has correct armband on for positive identification. Placed in gown. Bed in low tw5 position. Call light in reach. Pulse ox on. NIBP on. Door closed. Noise minimized. Moved to private room. Warm blanket given. Verbal reassurance given. 03:54 XRAY Chest (1 view) In Process Unspecified. EDMS 04:17 Inserted saline lock: 20 gauge in right wrist, using aseptic technique. Blood ds4 collected. Missed attempt(s): 20 gauge in right forearm. Bleeding controlled, band aid applied, catheter tip intact. 04:20 CBC with Diff Sent. tw5 04:20 Protime (+inr) Sent. tw5 04:20 Ptt, Activated Sent. tw5 04:20 CMP Sent. tw5 04:20 Lipase Sent. tw5 05:09 CT Abd/Pelvis - IV Contrast Only In Process Unspecified. EDMS 06:33 Jefferson Philippe MD is Hospitalizing Provider. rn 14:03 No provider procedures requiring assistance completed. Patient admitted, IV remains in ap3 place. Administered Medications: 04:25 Drug: Zofran (Ondansetron) 4 mg Route: IVP; Site: right hand; 6 05:41 Follow up: Response: No adverse reaction; Pain is decreased tw5 04:25 Drug: morphine 4 mg Route: IVP; Site: right hand; 6 05:41 Follow up: Response: No adverse reaction; Pain is decreased; RASS: Alert and Calm (0) tw5 06:38 Drug: morphine 4 mg Route: IVP; Site: right hand; [facility] Outcome: 06:39 Decision to Hospitalize by Provider. rn 14:04 Admitted to Med/surg ap3 14:04 Condition: good 14:04 Discharge instructions given to patient, Instructed on the need for admit. 14:35 Patient left the ED. ap3 Signatures: Dispatcher [employer] EDMO Warren Philippe MD MD rn Swanson, Donovan ds4 Carolina Lewis RN RN ap3 Oksana Marx tw5 Izabella Portillo RN RN jh6
--- NOTE | 2021-06-12 06:40 | EDPHYS ---
Physician Documentation [facility] Name: Neri Luna Age: 60 yrs Sex: Male : 1960 Arrival Date: 06/12/2021 Time: 03:38 Bed 3 Private MD: ED Physician Warren Philippe HPI: 06/12 03:40 This 60 yrs old Male presents to ER via Unassigned with complaints of right flank pain. rn 03:40 The patient complains of pain in the right mid back. The patient complains of pain in rn the right flank and right mid back. The pain radiates to the abdomen. Onset: The symptoms/episode began/occurred this morning. Modifying factors: The symptoms are alleviated by nothing. the symptoms are aggravated by movement, palpation/percussion. Associated signs and symptoms: Pertinent negatives: diarrhea, dizziness, fever, urinary frequency. Severity of pain: At its worst the pain was moderate in the emergency department the pain is unchanged. The patient has not experienced similar symptoms in the past. The patient has been recently seen by a physician:. Pt reports hx of cirrhosis, just had paracentesis done in [place] this past week, states abdomen feels better and smaller, but woke up with right flank and abd pain 2 hours ago. Denies trauma. Denies cough or sob. No pain in left or lower abdomen. No blood in stool or hematemesis.. Historical: - Allergies: 03:50 No Known Allergies; tw5 - PMHx: 03:50 Diabetes - NIDDM; Myocardial infarction; tw5 - Immunization history:: Flu vaccine is not up to date. - Social history:: Smoking status: Patient reports the use of cigarette tobacco products, smokes one-half pack cigarettes per day. - Family history:: not pertinent. - Hospitalizations: : No recent hospitalization is reported. ROS: 03:40 Constitutional: Negative for fever, chills, and weight loss, Eyes: Negative for injury, rn pain, redness, and discharge, Neck: Negative for injury, pain, and swelling, Cardiovascular: Negative for chest pain, palpitations, and edema, Respiratory: Negative for shortness of breath, cough, wheezing, and pleuritic chest pain, Abdomen/GI: Negative for vomiting, diarrhea, and constipation, Back: + right flank pain MS/Extremity: Negative for injury and deformity, Skin: Negative for injury, rash, and discoloration, Neuro: Negative for headache, weakness, numbness, tingling, and seizure. Exam: 03:40 Constitutional: Thin male, no acute distress Head/Face: Normocephalic, atraumatic. rn Eyes: Periorbital areas with no swelling, redness, or edema. Cardiovascular: Regular rate and rhythm. No pulse deficits. Respiratory: No increased work of breathing, no retractions or nasal flaring. Abdomen/GI: Soft, no focal tenderness, + fluid wave, no peritoneal signs, more tender right flank under ribs, no leakage of fluid, no ecchymosis Skin: Warm, dry MS/ Extremity: Pulses equal, no cyanosis. Neuro: Awake and alert, GCS 15 Vital Signs: 03:49 BP 150 / 90; Pulse 98; Resp 18; Temp 98.5(TE); Pulse Ox 98% ; Weight 64.41 kg; Height 5 tw5 ft. 8 in. (172.72 cm); Pain 9/10; 04:25 BP 149 / 78; Pulse 80; Resp 18; Pulse Ox 96% on R/A; Pain 9/10; tw5 05:39 BP 140 / 80; Pulse 78; Resp 18; Pulse Ox 94% on R/A; tw5 06:39 BP 113 / 76; Pulse 76; Resp 18; Pulse Ox 100% on R/A; tw5 03:49 Body Mass Index 21.59 (64.41 kg, 172.72 cm) tw5 MDM: 03:38 Patient medically screened. rn 06:30 Differential diagnosis: ascites, cirrhosis, malignancy, pleural effusion, rn cholecystitis, cholelithiasis. Data reviewed: vital signs, nurses notes. 06:31 Counseling: I had a detailed discussion with the patient and/or guardian regarding: the rn historical points, exam findings, and any diagnostic results supporting the discharge/admit diagnosis, lab results, radiology results, the need for further work-up and treatment in the hospital. Response to treatment: the patient's symptoms have mildly improved after treatment, and as a result, I will admit patient. Admission orders: after a detailed discussion of the patient's condition and case, the admit orders are written by me. ED course: Pt still uncomfortable, no peritoneal signs to suggest SBP, CT shows ascites, liver masses, and cholelithiasis. Pt states told in past might have liver cancer, but never notified of gallstones. Reports pain began last night after eating. Will admit for further evaluation and pain control.. 06/12 03:39 Order name: CBC with Diff; Complete Time: 04:42 rn 06/12 03:39 Order name: CMP; Complete Time: 04:42 rn 06/12 03:39 Order name: Lipase; Complete Time: 04:42 rn 06/12 03:39 Order name: Urine Microscopic Only rn 06/12 03:39 Order name: Protime (+inr); Complete Time: 04:42 rn 06/12 03:39 Order name: Ptt, Activated; Complete Time: 04:42 rn 06/12 07:50 Order name: CBC with Automated Diff EDMS 06/12 07:50 Order name: CBC with Automated Diff EDMS 06/12 07:50 Order name: Comprehensive Metabolic Panel EDMS 06/12 07:50 Order name: Comprehensive Metabolic Panel EDMS 06/12 07:50 Order name: Magnesium EDMS 06/12 07:50 Order name: Magnesium EDMS 06/12 07:50 Order name: Phosphorus EDMS 06/12 07:50 Order name: Phosphorus EDMS 06/12 03:39 Order name: CT Abd/Pelvis - IV Contrast Only rn 06/12 03:39 Order name: IV Saline Lock; Complete Time: 04:16 rn 06/12 03:39 Order name: Labs collected and sent; Complete Time: 04:16 rn 06/12 03:40 Order name: XRAY Chest (1 view) rn 06/12 07:49 Order name: CONS Physician Consult EDLA 06/12 07:50 Order name: NPO EDLA 06/12 08:35 Order name: COVID-19 SARS RT PCR (Document "Date of Onset" if Symptomatic) bd 06/12 09:45 Order name: SARS-COV-2 RT PCR EDLA 06/12 10:20 Order name: US EDLA Administered Medications: 04:25 Drug: Zofran (Ondansetron) 4 mg Route: IVP; Site: right hand; 6 05:41 Follow up: Response: No adverse reaction; Pain is decreased tw5 04:25 Drug: morphine 4 mg Route: IVP; Site: right hand; 6 05:41 Follow up: Response: No adverse reaction; Pain is decreased; RASS: Alert and Calm (0) tw5 06:38 Drug: morphine 4 mg Route: IVP; Site: right hand; jh6 Disposition Summary: 06/12/21 06:39 Hospitalization Ordered Hospitalization Status: Observation rn Provider: Jefferson Philippe rn Condition: Stable rn Problem: new rn Symptoms: have improved rn Bed/Room Type: Standard rn Location: Telemetry/MedSurg (observation)(06/12/21 12:53) bd Room Assignment: 407(06/12/21 12:53) bd Diagnosis - Upper abdominal pain, unspecified rn - Other cholelithiasis without obstruction rn - Unspecified cirrhosis of liver rn Forms: - Medication Reconciliation Form rn - SBAR form rn Signatures: Dispatcher [employer] EDMS Mary Cotter Roman, MD MD rn Garcia, Cindy RN Oksana Nagel tw5 Izabella Portillo RN RN 6 Corrections: (The following items were deleted from the chart) 06:43 06:39 Telemetry/MedSurg (observation) rn cg 06:43 06:39 rn cg 12:53 06:43 [facility] ER HOLD cg bd 12:53 06:43 ERHOLD- cg bd
[2021-06-12] MEDS ORDERED: ONDANSETRON 4 MG/2 ML VIAL IV PRN (07:47)
[2021-06-12] MEDS ORDERED: MORPHINE 4 MG/ML SYR IV PRN (07:49)
[2021-06-12] MEDS ORDERED: NA CHLORIDE 0.9% 1,000 ML IV SCH (08:00)
[2021-06-12] MEDS ORDERED: ENOXAPARIN 40 MG/0.4 ML SQ ONE (08:39)
[2021-06-12] MEDS ORDERED: NA CHLORIDE 0.9% 1,000 ML ONE (08:39)
[2021-06-12 08:49] VITALS: BMI 21.6
[2021-06-12] MEDS: ENOXAPARIN 40 MG/0.4 ML SQ SCH (08:49)
[2021-06-12] MEDS: INSULIN -REGULAR HUMAN 50 UNIT/0.5 ML ML SQ SCH ×3 (08:50→20:24)
--- NOTE | 2021-06-12 10:20 | RAD REPORT ---
EXAM DESCRIPTION: US - Liver Only - 06/12/2021 8:21 am CLINICAL HISTORY: Liver mass COMPARISON: June 12, 2021 cat scan FINDINGS: A cirrhotic liver with retraction of the capsule. Multiple hypo and isoechoic lesions are present. The largest visualized lies within the inferior aspe ct of the right lobe measuring 3.6 centimeters. The portal vein is patent with hepatopetal flow. IMPRESSION: Cirrhosis Multiple hepatic lesions. Multicentric hepatocellular carcinoma is considered most likely
--- NOTE | 2021-06-12 11:39 | P.HP ---
Certification for Inpatient Patient admitted to: Observation With expected LOS: <2 Midnights Practitioner: I am a practitioner with admitting privileges, knowledge of patient current condition, hospital course, and medical plan of care. Services: Services provided to patient in accordance with Admission requirements found in Title 42 Section 412.3 of the Code of Federal Regulations Patient History Date of Service: 06/12/21 Reason for admission: RUQ pain, shortness of breath History of Present Illness: 60yo PMH: Hepatitis C, HTN, CAD, NIDDM 2, recently diagnosed with liver ci rrhosis, liver cancer in February, vein thrombosis ~1 week ago. Presented to ED due to R flank pain with nausea and dry heaving that woke him up this morning. Patient states he was at [facility] last week, underwent paracentesis. He states he was diagnosed with a thrombus in his vein, started on Eliquis. He reports his abdomen feels smaller and more comfortable since paracentesis. R flank pain is new for him. nothing alleviates / worsens the pain. Denies diarrhea/constipation, no dysuria, no numbness/tingling. He recently moved back to the area from [place] where he was working. States he was diagnosed with liver cancer and cirrhosis February 2021. At that time, he presented to the ED with severe abdominal pain and syncope. He he states he had a "bleed in his liver" and required 8-9 units of blood. He describes an intravascular procedure was done to stop the bleeding. In the ED, he was noted to have significant pain, requiring IV medication, CT abdomen/pelvis noted cholelithiasis, moderate ascites, lesions in his liver, multiple cysts in his kidneys. Patient denies being told he had cysts in his kidneys before. ED physician requests admission for further evaluatio n/management. Allergies No Known Allergies Allergy (Unverified 12/24/16 10:08) Home Medications: NK [No Home Meds] 06/12/21 - Past Medical/Surgical History Has patient received pneumonia vaccine in the past: No Diabetic: No -: CAD, [place] 12 years ago -: Tobacco abuse -: CAD, [place] 12 years ago -: Tobacco abuse -: HTN -: DM2, not insulin dependent -: Hepatitis C -: Right elbow surgery r/t fx -: Tonsilectomy Psychosocial/ Personal History: The patient is of less than a year. He works in [employer]. The patient has 3 children. - Family History Mother -: Cancer Sister -: Cancer - Social History Smoking Status: Current every day smoker Alcohol use: No CD- Drugs: No Place of Residence: Home Physical Examination - Physical Exam General: Alert, Oriented x3, Mild distress HEENT: Other (Dry mucous membranes), Sclerae nonicteric Respiratory: Clear to auscultation bilaterally, Normal air movement Cardiovascular: Regular rate/rhythm Gastrointestinal: Soft and benign, Non-distended, Tenderness (Right upper quadrant, right flank) Musculoskeletal: Tenderness (Right flank, right lumbar region) Integumentary: No significant lesion Neurological: Normal speech, Normal affect, Other (Moves all extremities) - Studies Laboratory Data (last 24 hrs) 06/12/21 04:01: PT 11.4, INR 1.04, APTT 30.6 06/12/21 04:01: Sodium 137, Potassium 3.2 L, BUN 10, Creatinine 1.05, Glucose 207 H, Total Bilirubin 0.7, AST 144 H, ALT 50, Alkaline Phosphatase 239 H, Lipase 70 L 06/12/21 04:01: WBC 6.8, Hgb 16.1, Hct 47.6, Plt Count 190 Assessment and Plan - Advance Directives Does patient have a Living Will: No Does patient have a Durable POA for Healthcare: No Physician Review Additional Text: Problem list Right upper quadrant/right flank pain, nausea Liver cirrhosis Hepatitis C Liver cancer, unknown type Multiple bilateral renal cysts 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 Cholelithiasis noted, no findings of cholecystitis, general surgery consulted Pain may be coming from cancer, likely has portal hypertension, possible gastritis Right lumbar/near CVA tenderness, multiple cysts in kidneys, denies having known this previously Further evaluate with right upper quadrant ultrasound and renal ultrasound GI consulted will give gentle IVF, monitor for infection pain medication as needed VTE: eliquis Code: full Dispo: home, 1-2 days Time Spent Managing Pts Care (In Minutes): 75
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
--- NOTE | 2021-06-12 15:54 | RAD REPORT ---
EXAM DESCRIPTION: RAD - Chest Single View - 06/12/2021 3:53 am CLINICAL HISTORY: 60 years, Male, right flank pain COMPARISON: None. FINDINGS: Single view of the chest was obtained portable. No prior films are available for compariso n. The lung volume is decreased. The cardiomediastinal silhouette demonstrate to be unremarkable. The heart is not enlarged. The thoracic aorta is mildly tortuous. Costophrenic angles are sharp. Minimal bandlike densities within the lung bases correspond to most likely atelectasis. No definitive focal areas of consolidations. The rest of the soft tissue and bony structures demonstrate to be unremark able. IMPRESSION: Minimal bandlike densities within the lung bases correspond to most likely atelectasis. No definitive focal areas of consolidations. Electronically signed by: Magan Gutierrez MD 06/12/2021 4:03 AM CDT Due to temporary technical issues with the PACS/Fluency reporting system, reports are being signed by the in house radiologists without review as a courtesy to insure prompt reporting. The interpreting radiologist is fully responsible for the content of the report.
[2021-06-12] MEDS ORDERED: POTASSIUM CL SA 10 MEQ TAB PO ONE (16:00)
[2021-06-12] MEDS: NA CHLORIDE 0.9% 1,000 ML IV SCH ×2 (17:57→23:11)
[2021-06-13 04:22] LABS: Absolute Lymphocytes (CBC) 2.2 K/uL (0.7-4.9); Hematocrit 42.2 % (39.6-49.0); Lymphocytes % 30.1 % (15.3-44.8); MPV 8.2 fL (7.6-11.3); RBC Red Blood Cell Count 4.42 M/uL (4.33-5.43)
[2021-06-13 04:41] LABS: ALT/SGPT 39 U/L (12-78); AST/SGOT 102 U/L (15-37); Albumin 1.8 g/dL (3.4-5.0); Alkaline Phosphatase 184 U/L (45-117); BUN Blood Urea Nitrogen 8 mg/dL (7-18); Bicarbonate 29 mmol/L (21-32); Bilirubin Total 0.8 mg/dL (0.2-1.0); Glucose Level 120 mg/dL (74-106); Magnesium 1.8 mg/dL (1.8-2.4); Phosphorus 2.4 mg/dL (2.5-4.9); Potassium 3.3 mmol/L (3.5-5.1); Protein, Total 5.1 g/dL (6.4-8.2); Sodium Level 139 mmol/L (136-145)
[2021-06-13] MEDS ORDERED: MAGNESIUM SULFATE 1 gm IVPB 1 GM/100 ML BAG IV ONE (06:26)
[2021-06-13] MEDS ORDERED: POTASSIUM CL SA 10 MEQ TAB PO ONE (06:26)
[2021-06-13] MEDS: INSULIN -REGULAR HUMAN 50 UNIT/0.5 ML ML SQ SCH ×2 (07:30→13:18)
[2021-06-13 08:29] VITALS: BP 119/71
[2021-06-13] MEDS: ENOXAPARIN 40 MG/0.4 ML SQ SCH (08:47)
[2021-06-13 10:47] VITALS: O2SAT 96
[2021-06-13 12:06] VITALS: TEMP 98
--- NOTE | 2021-06-13 14:42 | CON ---
This patient was seen by me yesterday in the ER. History Of Present Illness: This is the case of a 60-year-old patient, who comes to us with abdomina l pain. He has been behaving like this for the last several months. He was recently moved from [facility]. He says that when he was there he was diagnosed with liver cancer and also cirrhosis of th e liver and that was just a few months ago. At one point, he says he was bleeding so much and he req uired massive transfusion. He is not sure exactly how they controlled the bleeding, other than he sa ys that was packed, but he has no abdominal incisions. So, he is not sure about the details. Anyway , he moved to this area, recently seen by [facility] in [place], found with cirrhosis of the liver and ascites and they did a tapping. He has been having pain since February. He was having also some epigastric pain. In the last few hours, he called the ambulance who came and rechecked, but even tho ugh he requested to be taken to once again to [facility] since . The ambulance brought hi m to this institution. He cannot give much information about how that is cirrhosis of the liver and have that is liver tumors. The patient is comfortable when I saw him in ER with no nausea, vomiting at this moment and the pain resolved. He does not remember eating out of unusual. He does not remem serafin any dysuria, hematuria, hematochezia recently, or melena. Allergies: NONE. Medications: None known. Past Medical History: As above including heart attack long time ago and coronary artery disease abou t 12 years ago diagnosed. Medical history once again added on include also hepatitis, diabetes, hype rtension. Past Surgical History: Also includes elbow surgery and tonsillectomy. Social History: The patient smoked. Family History: Includes cancer, he does not know which one. Review of Systems: The patient stated nausea when he came here initially. He feels better now. No fever. No shortness of breath. No chest pain. No hematochezia. No melena once again. Ten points otherwise unremarkab le. Physical Examination: General: The patient is awake, alert. HEENT: Pupils are equal and reactive. Anicteric. Neck: Supple. Chest: Clear. Abdomen: Soft and depressible. No guarding or rebound. No peritoneal signs. No Meyers signs. No psoas signs. Rectal: Deferred. Extremities: Good capillary refill. Laboratory Data: Liver ultrasound shows cirrhosis of the liver, multiple hepatic lesions, multicentr ic hepatocellular carcinoma most likely per the radiologist. CAT scan of the abdomen and pelvis inte rpreted by Dr. Dsouza as once again cirrhosis of the liver, hypodense lesions, and lesion that measu red about 5.7 cm, most likely consistent with the findings of cancer that he has in [place]. Th e patient also found to have some gallstones, although no gallbladder thickening. Blood work shows W BC count of 6.8 with hemoglobin of 16.1. INR is 1.04. Potassium 3.2, glucose 207, total bilirubin o f 0.7. Assessment: This is a 60-year-old patient with history of liver mass, cirrhosis of liver, seen previ ously at [facility], but when he has abdominal pain, he stated that he just did have a chose to come to this institution. From the surgical standpoint, we did not see any cholecystitis at this moment. He may have some gallstones, but if that surgery will be done, most likely it will be done in the [facility] where they can deal with a consequence of bleeding and cirrhosis of the liver complicatio ns. Right now, the patient may advance the diet as tolerated and when discharged, please refer to the Liver [facility] and at [facility] Ana PAGE/GENE Voice ID: [id number] Report ID: [id number]
--- NOTE | 2021-06-13 14:47 | P.DS ---
Admission Date: 06/12/21 Discharge Date: 06/13/21 Disposition: ROUTINE DISCHARGE Discharge Condition: FAIR Reason for Admission: RUQ pain, shortness of breath - Problems (1) Abdominal pain Status: Acute (2) Liver cirrhosis Status: Acute Brief History of Present Illness: 60yo PMH: Hepatitis C, HTN, CAD, NIDDM 2, recently diagnosed with liver cirrhosis, liver cancer in February, vein thrombosis ~1 week ago. Presented to ED due to R flank pain with nausea and dry heaving that woke him up this morning. Patient states he was at [facility] last week, underwent paracentesis. He states he was diagnosed with a thrombus in his vein, started on Eliquis. R flank pain is new for him. He recently moved back to the area from [place] where he was working. States he was diagnosed with liver cancer and cirrhosis February 2021. At that time, he presented to the ED with severe abdominal pain and syncope. He he states he had a "bleed in his liver" and required 8-9 units of blood. He describes an intravascular procedure was done to stop the bleeding. In the ED, he was noted to have significant pain, requiring IV medication, CT a bdomen/pelvis noted cholelithiasis, moderate ascites, lesions in his liver, multiple cysts in his kidneys. Patient hospitalized for further management. Hospital Course: Patient admitted to the medical floor treated with supportive measures including IV morphine as needed for pain. GI consulted, Dr. Gilman recommended follow-up with a liver specialist for further management. Patient has been clinically stable. No anemia, no hematemesis or melena. He is discharged to follow-up with Dr. Rosenthal. Liver specialist at [facility]. I called Dr. Stanley to arrange for follow-up. Patient has been given a number to call for appointment. Vital Signs/Physical Exam: Temp Pulse Resp BP Pulse Ox 98 F 69 18 119/71 97 06/13/21 12:00 06/13/21 12:00 06/13/21 12:00 06/13/21 12:06/13/21 12:00 General: Alert, In no apparent distress, Oriented x3 HEENT: Atraumatic, Mucous membr. moist/pink Neck: Supple, JVD not distended Respiratory: Clear to auscultation bilaterally, Normal air movement Cardiovascular: Regular rate/rhythm, Normal S1 S2 Gastrointestinal: Soft and benign, No tenderness Musculoskeletal: No tenderness Integumentary: No rashes Neurological: Normal strength at 5/5 x4 extr Laboratory Data at Discharge: WBC 7.2 K/uL (4.3-10.9) 06/13/21 03:23 Hgb 14.2 g/dL (13.6-17.9) 06/13/21 03:23 Hct 42.2 % (39.6-49.0) 06/13/21 03:23 Plt Count 204 K/uL (152-406) 06/13/21 03:23 PT 11.4 SECONDS (9.5-12.5) 06/12/21 04:01 INR 1.04 06/12/21 04:01 APTT 30.6 SECONDS (24.3-36.9) 06/12/21 04:01 Sodium 139 mmol/L (136-145) 06/13/21 03:23 Potassium 3.3 mmol/L (3.5-5.1) L 06/13/21 03:23 BUN 8 mg/dL (7-18) 06/13/21 03:23 Creatinine 0.76 mg/dL (0.55-1.3) 06/13/21 03:23 Glucose 120 mg/dL (74-106) H 06/13/21 03:23 Phosphorus 2.4 mg/dL (2.5-4.9) L 06/13/21 03:23 Magnesium 1.8 mg/dL (1.8-2.4) 06/13/21 03:23 Total Bilirubin 0.8 mg/dL (0.2-1.0) 06/13/21 03:23 AST 102 U/L (15-37) H 06/13/21 03:23 ALT 39 U/L (12-78) 06/13/21 03:23 Alkaline Phosphatase 184 U/L (45-117) H 06/13/21 03:23 Lipase 70 U/L (73-393) L 06/12/21 04:01 Home Medications: Furosemide [Lasix] 20 mg PO DAILY PRN #30 tab 06/13/21 Spironolactone [Aldactone] 100 mg PO DAILY #30 tab 06/13/21 New Medications: Spironolactone [Aldactone] 100 mg PO DAILY #30 tab Furosemide [Lasix] 20 mg PO DAILY PRN #30 tab PRN Reason: edema Physician Discharge Instructions: [facility] Please call [phone] for an appointment. Diet: AHA Activity: Ad neto Followup: NONE,NONE [Primary Care Provider] -
== END 2021-06-13 15:22 | disposition home or self-care (01) ==
LOC: ER 03:37 → ERHOLD 07:46 → 4TH 13:53
PROVIDERS: ADMIT Hospitalist; ATTEND Internal Medicine
DX: R10.11 Right upper quadrant pain (principal); K74.60 Unspecified cirrhosis of liver; R11.0 Nausea; C22.8 Malignant neoplasm of liver, primary, unspecified as to type; K80.20 Calculus of gallbladder without cholecystitis without obstruction; B19.20 Unspecified viral hepatitis C without hepatic coma; R18.8 Other ascites; I82.890 Acute embolism and thrombosis of other specified veins; I10 Essential (primary) hypertension; N28.1 Cyst of kidney, acquired; E11.9 Type 2 diabetes mellitus without complications; I25.10 Atherosclerotic heart disease of native coronary artery without angina pectoris; I25.2 Old myocardial infarction; F17.210 Nicotine dependence, cigarettes, uncomplicated; Z79.01 Long term (current) use of anticoagulants; Z20.822 Contact with and (suspected) exposure to COVID-19; Z80.9 Family history of malignant neoplasm, unspecified
CPT/HCPCS: 36415; 71045; 74177; 76705; 80053; 82947; 83690; 83735; 84100; 84132; 85025; 85610; 85730; 96374; 96375; 99285; G0378; J1650; J1815; J2405; J3475; J7030; Q9967; U0003

== ENCOUNTER 2021-10-10 07:34 | Day surgery (SDC) | payer OTHER ==
[2021-10-10 08:20] VITALS: O2SAT 100; BMI 23.3
[2021-10-10 08:24] LABS: MPV 7.8 fL (7.6-11.3)
[2021-10-10 08:35] LABS: Protime INR 1.1
[2021-10-10] MEDS ORDERED: ALBUMIN HUMAN 25% 200 ML IV ONE (10:31)
--- NOTE | 2021-10-10 12:19 | RAD REPORT ---
EXAM DESCRIPTION: US - Paracentesis Proc Guidance - 10/10/2021 9:28 am CLINICAL HISTORY: Ascites COMPARISON: Liver ultrasound 06/12/2021, CT abdomen and pelvis 06/12/2021 TECHNIQUE: The patient presents for ultrasound-guided paracentesis. The procedure, risks and altern atives were discussed with the patient in detail. Oral and written consent were obtained. Time out p rocedure was performed. The patient had no contraindicated allergy or medication history. PT, INR va lues within acceptable limits. Preliminary sonographic evaluation identified right lower quadrant access site. The skin and deeper tissues were anesthetized with 1 percent lidocaine. Under direct sonographic visualization, a 5 Fren ch catheter was advanced into the peritoneal cavity. Approximately 12 mL of ascites was retained for any possible laboratory studies. Large volume drainage was initiated. Approximately 10 liters of asci fabio removed. At the conclusion of the procedure, catheter was withdrawn and a bandage placed at the puncture site. Postprocedure care and precaution instructions were given to the patient. Patient was transferred b k to the a surgery area for postprocedure albumin infusion. IMPRESSION: Ultrasound-guided paracentesis as detailed.
[2021-10-10 14:36] VITALS: BP 125/89; TEMP 98.2
== END 2021-10-10 11:35 | disposition home or self-care (01) ==
LOC: DS 07:34
PROVIDERS: ATTEND Internal Medicine
DX: R18.8 Other ascites (principal); K74.60 Unspecified cirrhosis of liver; R16.0 Hepatomegaly, not elsewhere classified; I81 Portal vein thrombosis
CPT/HCPCS: 36415; 85049; 85610; 85730; 49083; P9047; 96365

== ENCOUNTER 2021-10-24 08:23 | Day surgery (SDC) | payer OTHER ==
[2021-10-24 08:56] VITALS: BMI 23.3
--- NOTE | 2021-10-24 11:42 | RAD REPORT ---
EXAM DESCRIPTION: US - Paracentesis Proc Guidance - 10/24/2021 11:35 am CLINICAL HISTORY: Liver disease with ascites FINDINGS: The risks, benefits and alternatives to the procedure were explained to the patient and in formed consent obtained. The skin and subcutaneous tissues were anesthetized with Lidocaine. Under sonographic guidance an 8 F rench catheter was placed into the right lower quadrant. 10 liters of yellow fluid removed. The patient experienced no immediate complication. IMPRESSION: Paracentesis
[2021-10-24] MEDS ORDERED: ALBUMIN HUMAN 25% 200 ML IV ONE (12:02)
[2021-10-24 12:45] VITALS: BP 114/76; TEMP 98.1; O2SAT 99
== END 2021-10-24 12:50 | disposition home or self-care (01) ==
LOC: DS 08:23
PROVIDERS: ATTEND Internal Medicine
DX: R18.8 Other ascites (principal); K74.60 Unspecified cirrhosis of liver; R16.0 Hepatomegaly, not elsewhere classified; I81 Portal vein thrombosis
CPT/HCPCS: 96365; 49083; P9047

== ENCOUNTER 2021-11-03 08:49 | Day surgery (SDC) | payer OTHER ==
[2021-11-03 09:17] VITALS: BP 133/81; TEMP 98.7; O2SAT 100; BMI 23.3
--- NOTE | 2021-11-03 11:16 | RAD REPORT ---
EXAM DESCRIPTION: US - Paracentesis Proc Guidance - 11/03/2021 11:10 am CLINICAL HISTORY: ASCITES Ascites COMPARISON: Pelvis Angio dated 05/03/2021aracentesis Proc Guidance dated 10/24/2021 FINDINGS: Informed consent was obtained and time-out was performed. Patient's abdomen was prepped and draped in the usual sterile fashion. 1% lidocaine was used for loca l anesthetic purposes. A small skin incision was made right lower quadrant. A paracentesis catheter was guided into the savana zofia cavity under sonographic guidance. A small amount of fluid was sent for requested lab studies. A large volume paracentesis was performed . The patient tolerated the procedure well. Patient was administered IV albumin per protocol following the procedure. IMPRESSION: Successful ultrasound-guided paracentesis.
[2021-11-03] MEDS ORDERED: ALBUMIN HUMAN 25% 100 ML IV ONE ×2 (12:11→12:19)
== END 2021-11-03 12:52 | disposition home or self-care (01) ==
LOC: DS 08:49
PROVIDERS: ATTEND Internal Medicine
DX: R18.8 Other ascites (principal); K74.60 Unspecified cirrhosis of liver; R16.0 Hepatomegaly, not elsewhere classified; I81 Portal vein thrombosis
CPT/HCPCS: 96365; 49083; P9047 ×2

== ENCOUNTER 2021-11-13 07:50 | Day surgery (SDC) | payer OTHER ==
[2021-11-13 08:22] LABS: MPV 7.7 fL (7.6-11.3)
[2021-11-13 08:27] LABS: Protime INR 0.97
[2021-11-13 08:45] VITALS: O2SAT 100; BMI 17.9
[2021-11-13] MEDS ORDERED: ALBUMIN HUMAN 25% 200 ML IV ONE (11:24)
[2021-11-13 11:30] VITALS: BP 119/75; TEMP 97.5
--- NOTE | 2021-11-13 11:30 | RAD REPORT ---
EXAM DESCRIPTION: US - Paracentesis Proc Guidance - 11/13/2021 10:42 am CLINICAL HISTORY: ASCITES Ascites COMPARISON: Paracentesis Proc Guidance dated 11/03/2021 FINDINGS: Informed consent was obtained and time-out was performed. Patient's abdomen was prepped and draped in the usual sterile fashion. 1% lidocaine was used for loca l anesthetic purposes. A small skin incision was made right lower quadrant. A paracentesis catheter was guided into the savana zofia cavity under sonographic guidance. A small amount of fluid was sent for requested lab studies. A large volume paracentesis was performed . The patient tolerated the procedure well. Patient was administered IV albumin per protocol following the procedure. IMPRESSION: Successful ultrasound-guided paracentesis.
== END 2021-11-13 12:00 | disposition home or self-care (01) ==
LOC: DS 07:50
PROVIDERS: ATTEND Internal Medicine
DX: R18.8 Other ascites (principal); K74.60 Unspecified cirrhosis of liver; R16.0 Hepatomegaly, not elsewhere classified; I81 Portal vein thrombosis
CPT/HCPCS: 36415; 85049; 85610; 85730; 96365; 49083; P9047

== ENCOUNTER 2021-11-24 08:55 | Day surgery (SDC) | payer OTHER ==
[2021-11-24 09:39] VITALS: O2SAT 100; BMI 17.6
[2021-11-24] MEDS ORDERED: ALBUMIN HUMAN 25% 200 ML IV ONE (11:34)
--- NOTE | 2021-11-24 11:54 | RAD REPORT ---
EXAM DESCRIPTION: US - Paracentesis Proc Guidance - 11/24/2021 10:43 am CLINICAL HISTORY: Liver disease with ascites FINDINGS: The risks, benefits and alternatives to the procedure were explained to the patient and in formed consent obtained. The skin and subcutaneous tissues were anesthetized with Lidocaine. Under sonographic guidance an 8 F rench catheter was placed into the right lower quadrant. 10 liters of yellow fluid removed. Fluid sen t to the lab. The patient experienced no immediate complication. IMPRESSION: Paracentesis
[2021-11-24 12:58] VITALS: BP 113/77; TEMP 97.9
== END 2021-11-24 12:17 | disposition home or self-care (01) ==
LOC: DS 08:55
PROVIDERS: ATTEND Internal Medicine
DX: R18.8 Other ascites (principal); K74.60 Unspecified cirrhosis of liver; R16.0 Hepatomegaly, not elsewhere classified; I81 Portal vein thrombosis
CPT/HCPCS: 96365; 49083; P9047

== ENCOUNTER 2022-01-08 08:18 | Day surgery (SDC) | payer OTHER ==
[2022-01-08 08:45] LABS: MPV 7.7 fL (7.6-11.3)
[2022-01-08 08:51] LABS: Protime INR 1.15
[2022-01-08 09:07] VITALS: TEMP 97.6; BMI 17.9
[2022-01-08] MEDS ORDERED: ALBUMIN HUMAN 25% 300 ML IV ONE (10:13)
[2022-01-08 11:31] VITALS: BP 108/64; O2SAT 98
--- NOTE | 2022-01-08 12:48 | RAD REPORT ---
EXAM DESCRIPTION: US - Paracentesis Proc Guidance - 01/08/2022 10:03 am CLINICAL HISTORY: Liver disease with ascites FINDINGS: The risks, benefits and alternatives to the procedure were explained to the patient and in formed consent obtained. The skin and subcutaneous tissues were anesthetized with Lidocaine. Under sonographic guidance an 8 F rench catheter was placed into the right lower quadrant. 6.5 liters of yellowish brown fluid removed. Fluid sent to the lab. The patient experienced no immediate complication. IMPRESSION: Paracentesis
== END 2022-01-08 11:20 | disposition home or self-care (01) ==
LOC: DS 08:18
PROVIDERS: ATTEND Internal Medicine
DX: R18.8 Other ascites (principal); K74.60 Unspecified cirrhosis of liver; R16.0 Hepatomegaly, not elsewhere classified; I81 Portal vein thrombosis
CPT/HCPCS: 36415; 85049; 85610; 85730; 96365; 49083; P9047